=== PATIENT | female | born 1935 | race Caucasian/White ===

== ENCOUNTER 2018-11-27 15:41 | Inpatient (IN) | payer MEDICARE, BC ==
[~2018-11-27] VITALS: Ht 157.5 cm; Wt 45.0 kg
[~2018-11-27 15:41] MED LIST: DOCU-28 PO; LISI10TA4 PO; MAGN800O PO; MULT-38 PO; OXYQ113.2 VG; PRED2.5T4 PO; PREVCR VG; SPIIN INH; [UNRECOGNIZED DRUG - CODE] PO
[2018-11-27 16:46] LABS: BASOPHILS % (AUTO) 0.3 % (0-1); EOSINOPHILS # (AUTO) 0.1 X10'3 (0-0.9); EOSINOPHILS % (AUTO) 1.1 % (0-6); HEMATOCRIT 36.3 % (35.0-45.0); HEMOGLOBIN 12.4 g/dl (12.0-16.0); LYMPHOCYTES # (AUTO) 0.9 X10'3 (1.1-4.8); LYMPHOCYTES % (AUTO) 9.3 % (21-51); MEAN CORPUSCULAR HGB CONC 34.2 g/dL (33.0-36.5); MEAN CORPUSCULAR VOLUME 93.5 FL (78-98); MEAN PLATELET VOLUME 7.1 FL (7.4-10.4); MONOCYTES # (AUTO) 0.8 X10'3 (0-0.9); MONOCYTES % (AUTO) 8.7 % (2-12); NEUTROPHILS # (AUTO) 7.6 X10'3 (1.8-7.7); NEUTROPHILS % (AUTO) 80.6 % (42-75); PLATELET COUNT 310 X10'3 (140-440); RED BLOOD COUNT 3.89 X10'6 (4.20-5.60); RED CELL DISTRIBUTION WIDTH 15.4 % (11.5-14.5); WHITE BLOOD COUNT 9.5 X10'3 (4.5-11.0)
[2018-11-27 16:57] LABS: PARTIAL THROMBOPLASTIN TIME 29 SECONDS (22-32)
[2018-11-27 17:01] LABS: ALANINE AMINOTRANSFERASE 19 U/L (12-78); ALBUMIN 3.1 G/DL (3.4-5.0); ALKALINE PHOSPHATASE 73 IU/L (46-116); ANION GAP 9 (8-16); ASPARTATE AMINO TRANSFERASE 23 U/L (10-37); BILIRUBIN,TOTAL 0.5 MG/DL (0.1-1.0); BLOOD UREA NITROGEN 16 MG/DL (7-18); BUN/CREATININE RATIO 23.9 (6.6-38.0); CALCIUM 8.7 MG/DL (8.5-10.1); CHLORIDE 90 MMOL/L (99-107); CREATININE 0.67 MG/DL (0.40-0.90); GLUCOSE 90 MG/DL (70-104); POTASSIUM 4.5 MMOL/L (3.5-5.1); SODIUM 122 MMOL/L (135-145); TOTAL CARBON DIOXIDE 22.7 MMOL/L (24-32); TOTAL PROTEIN 6.2 G/DL (6.4-8.2); eGFR 84 ML/MIN
[2018-11-27] MEDS ORDERED: CHOL100046 PO (18:19)
[2018-11-27] MEDS ORDERED: DENO60DI SQ (18:19)
[2018-11-27] MEDS ORDERED: LACTC PO (18:19)
[2018-11-27] MEDS ORDERED: TAMO20TA4 PO (18:19)
[2018-11-27] MEDS ORDERED: OXYQ113.2 PV (18:19)
[2018-11-27] MEDS ORDERED: LISI-604 PO (18:19)
[2018-11-27] MEDS ORDERED: ASPI-611 PO (18:19)
[2018-11-27] MEDS ORDERED: LORA10TA7 PO (18:19)
[2018-11-27] MEDS ORDERED: METH2.5T PO (18:19)
[2018-11-27] MEDS ORDERED: SIME125C88 PO (18:19)
[2018-11-27] MEDS ORDERED: NAPR220T67 PO (18:19)
[2018-11-27] MEDS ORDERED: FERR325T32 PO (18:19)
[2018-11-27] MEDS ORDERED: FOLI1TAB16 PO (18:19)
[2018-11-27 18:45] LABS: CLARITY,URINE SLIGHTLY CLOUDY (Clear); COLOR,URINE YELLOW (Yellow); GLUCOSE, URINE NEGATIVE (Neg); KETONES,URINE NEGATIVE (Neg); LEUKOCYTE ESTERASE ,URINE SMALL (Neg); NITRITES, URINE NEGATIVE (Neg); OCCULT BLOOD,URINE NEGATIVE (Neg); PH,URINE 6.5 (4.8-8.0); PROTEIN,URINE NEGATIVE (Neg); UROBILINOGEN,URINE 0.2 E.U/dL (0.2-1.0)
[2018-11-27 18:51] LABS: UA COLLECTION TYPE CLN CATCH MIDSTREAM
[2018-11-27 19:03] LABS: WBC,URINE 0-4 /HPF (0-4)
[2018-11-27 19:04] LABS: AMORPHOUS URATES 1+; BACTERIA,URINE FEW /HPF (Neg); RBC,URINE NONE SEEN /HPF (0-2); SQUAMOUS EPITHELIAL CELL,UR MODERATE /LPF (FEW)
[2018-11-27] MEDS ORDERED: mag hydrox/Alum hydrox/simeth 30ml oral suspension PO PRN (20:05)
[2018-11-27] MEDS ORDERED: acetaminophen 325mg tablet PO PRN ×2 (20:05)
[2018-11-27] MEDS ORDERED: ondansetron/PF 4mg/2ml inj IV PRN (20:05)
[2018-11-27] MEDS ORDERED: magnesium hydroxide 30ml (MOM) UD suspension PO PRN (20:05)
[2018-11-27] MEDS ORDERED: HYDROcodone/acetaminophen 5mg/325mg tablet PO PRN (20:05)
[2018-11-27] MEDS ORDERED: SIMETHICONE 125 MG CAPSULE PO PRN (20:15)
[2018-11-27] MEDS ORDERED: naproxen sodium 220mg tablet PO PRN (20:15)
[2018-11-27] MEDS ORDERED: OXYQUINOLINE PV SCH (20:15)
[2018-11-27] MEDS ORDERED: [UNRECOGNIZED DRUG - OTHER] PV SCH (20:15)
[2018-11-27 22:00] VITALS: BP 138/75
--- NOTE | 2018-11-27 22:15 | NUR ---
Received report from ER. Patient was alert and oriented and accompanied by her daughter. patient was able to transfer to the commode and to her bed with minimal assistance.
[2018-11-27] MEDS: normal saline 1000ml 1,000 ML IV SCH (22:25)
[2018-11-27] MEDS ORDERED: BACDS (22:37)
[2018-11-27] MEDS ORDERED: DOXY-224 (22:37)
--- NOTE | 2018-11-27 23:30 | NUR ---
DR. Savage was called in regards to patients home antibiotic. he said to hold the doxycycline and continue the bactrim.
[2018-11-27] MEDS: ipratropium 0.5 MG/2.5ML nebule IH SCH (23:33)
[2018-11-27] MEDS: sulfamethoxazole/trimethoprim DS (800/160mg) tablet PO SCH (23:55)
[2018-11-28] MEDS: ipratropium 0.5 MG/2.5ML nebule IH SCH ×4 (03:57→20:46)
[2018-11-28 06:00] VITALS: BP 119/67
--- NOTE | 2018-11-28 06:00 | NUR ---
Patient in room ORTH[facility] 4021. I have received report from Kaushal Vernon and had the opportunity to ask questions and assume patient care.
[2018-11-28 06:29] LABS: BASOPHILS % (AUTO) 0.3 % (0-1); EOSINOPHILS # (AUTO) 0.1 X10'3 (0-0.9); EOSINOPHILS % (AUTO) 1.6 % (0-6); HEMOGLOBIN 11.5 g/dl (12.0-16.0); LYMPHOCYTES # (AUTO) 0.9 X10'3 (1.1-4.8); LYMPHOCYTES % (AUTO) 10.3 % (21-51); MEAN CORPUSCULAR HEMOGLOBIN 31.8 PG (27.0-31.0); MEAN CORPUSCULAR HGB CONC 33.9 g/dL (33.0-36.5); MEAN PLATELET VOLUME 7.1 FL (7.4-10.4); MONOCYTES # (AUTO) 0.8 X10'3 (0-0.9); MONOCYTES % (AUTO) 10.1 % (2-12); NEUTROPHILS # (AUTO) 6.4 X10'3 (1.8-7.7); NEUTROPHILS % (AUTO) 77.7 % (42-75); PLATELET COUNT 271 X10'3 (140-440); RED BLOOD COUNT 3.61 X10'6 (4.20-5.60); RED CELL DISTRIBUTION WIDTH 15.5 % (11.5-14.5); WHITE BLOOD COUNT 8.2 X10'3 (4.5-11.0)
[2018-11-28 06:46] LABS: ALBUMIN 2.6 G/DL (3.4-5.0); ANION GAP 9 (8-16); BLOOD UREA NITROGEN 17 MG/DL (7-18); BUN/CREATININE RATIO 28.3 (6.6-38.0); CHLORIDE 94 MMOL/L (99-107); GLUCOSE 76 MG/DL (70-104); SODIUM 125 MMOL/L (135-145); TOTAL CARBON DIOXIDE 22.3 MMOL/L (24-32); eGFR > 90 ML/MIN
[2018-11-28] MEDS ORDERED: non-formulary drug (Tiotropium Bromide (SPIRIVA inhaler) 1 CAP) INH SCH (08:00)
[2018-11-28] MEDS ORDERED: non-formulary drug (Multivitamin (Daily Multiple Vitamin) 1 TAB) PO SCH (08:00)
[2018-11-28] MEDS ORDERED: non-formulary drug (Lactobacillus Acidophilus (ACIDOPHILUS capsule) 1 CAP) PO SCH (08:00)
[2018-11-28] MEDS ORDERED: CALCIUM CITRATE PO SCH (08:00)
[2018-11-28] MEDS ORDERED: non-formulary drug (Aspirin (Aspir 81) 1 TAB) PO SCH (08:00)
[2018-11-28] MEDS ORDERED: VITAMIN D3 PO SCH (08:00)
[2018-11-28] MEDS ORDERED: TAMOXIFEN CITRATE PO SCH (08:00)
[2018-11-28] MEDS: loratadine 10mg tablet PO SCH (08:00)
[2018-11-28] MEDS: ferrous sulfate 325mg tablet PO SCH (09:38)
[2018-11-28] MEDS: docusate sod 100mg capsule PO SCH ×2 (09:38→20:25)
[2018-11-28] MEDS: aspirin 81mg tablet.DR PO SCH (09:38)
[2018-11-28] MEDS: lactobacillus rhamnosus 10,000 MMU CELLS/CAPSULE PO SCH (09:38)
[2018-11-28] MEDS: folic acid 1mg tablet PO SCH (09:39)
[2018-11-28] MEDS: tamoxifen 10mg tablet PO SCH (09:40)
[2018-11-28] MEDS: sulfamethoxazole/trimethoprim DS (800/160mg) tablet PO SCH ×2 (09:41→20:25)
[2018-11-28] MEDS: multivitamins, therapeutics tablet PO SCH (09:41)
[2018-11-28] MEDS: calcium carbonate/vitamin D3 tablet PO SCH (09:41)
[2018-11-28] MEDS: vitamin D (cholecalciferol) 1,000 unit tablet PO SCH (09:42)
[2018-11-28] MEDS: lisinopril 5mg tablet PO SCH (09:42)
[2018-11-28] MEDS: enoxaparin 40mg/0.4ml syringe SUBCUT SCH (09:43)
[2018-11-28 10:00] VITALS: BP 111/74
[2018-11-28] MEDS: normal saline 1000ml 1,000 ML IV SCH (16:05)
--- NOTE | 2018-11-28 16:37 | NUR ---
Malnutrition consult: Patient and daughter seen at bedside. Pt reports she has been on abx that has changed the taste of food and that she has a difficult time eating d/t ill fitting dentures however she is currently in the process of getting new dentures. Pt currently on regular diet with 1.5L fluid restriction and documented with 25% PO intake at breakfast and 0% at lunch. Per pt/family pt was unable to eat lunch d/t being busy for testing however was eating a late lunch during RD visit. Per discussion it seems like pt may have consumed more than 25% PO intake at breakfast. Daughter reports 5 lb wt loss in three weeks with UBW 104 lbs, current documented wt is 99 lbs however is pt stated. Pt with visible muscle wasting around the clavicles. Pt admit with confusion with generalized weakness and hyponatremia although with no edema or decrease in muscle strength per physical assessment. Pt currently lacks a minimum of two criteria for malnutrition. Per physical assessment pt with an open area on buttocks from excoriation and venous ulcer to BLE, wound care has been consulted. Pt provided with written and verbal protein education with RD contact information. Per daughter patient's usual PO intake is a small snack for breakfast, lunch around noon, then a light evening meal. Pt agreeable to chopped meat with gravy on the side TID d/t ill fitting dentures, Lithuanian yogurt BIDBD, and cottage cheese with QD with lunch, d/w dietary. Will continue to follow and monitor qualifying criteria for malnutrition. Addendum: 11/28/18 at [address] Amended: Links added.
--- NOTE | 2018-11-28 17:09 | NUR ---
PRESSURE ULCER EDUCATION: DEFINITION: A pressure ulcer is an area of skin that breaks down when you stay in one position too long. The constant pressure against the skin reduces the blood flow to that area and the affected tissue dies. CAUSES: "Being bedridden or in a wheelchair "Fragile skin "Having a chronic condition, such as diabetes or vascular disease "Inability to move certain parts of your body without assistance "Older age "Incontinence of urine or stool SYMPTOMS: "A reddened area that DOES NOT turn white when pressed on - this can be the beginning of a pressure ulcer "A blister, deep sore or a crater - these can be advanced pressure ulcers FIRST AID: "Relieve the pressure on this area "Keep the area clean and dry "Call your primary doctor if you see any of the above symptoms "DO NOT massage the area "DO NOT use a donut shaped or ring shaped pillow- these actually interfere with the blood flow and cause complications PREVENTION: "Check for pressure ulcers everyday "Change position at least every two hours to relieve pressure "Use items that help relieve pressure- pillows, sheepskin, foam padding, and powders. "Keep skin clean and dry "Eat healthy well balanced meals "Exercise daily IF YOU SEE ANY OF THESE SYMPTOMS WHILE IN THE HOSPITAL - TELL YOUR NURSE IMMEDIATELY. IF YOU SEE ANY OF THESE SYMPTOMS WHILE AT HOME OR HAVE ANY QUESTIONS OR CONCERNS ABOUT PRESSURE ULCERS - CALL YOUR PRIMARY DOCTOR IMMEDIATELY. Addendum: 11/28/18 at 1710 by Rajendra Barnes RN Amended: Links added.
[2018-11-28 18:00] VITALS: BP 127/75
--- NOTE | 2018-11-28 18:10 | NUR ---
Problems reprioritized. Patient report given, questions answered & plan of care reviewed with Kaushal Vernon
[2018-11-28 22:00] VITALS: BP 123/53
[2018-11-29] MEDS: ipratropium 0.5 MG/2.5ML nebule IH SCH ×4 (03:12→20:11)
[2018-11-29 06:00] VITALS: BP 145/70
--- NOTE | 2018-11-29 06:30 | NUR ---
Patient in room ORTH[facility] 4021. I have received report from Kaushal Vernon and had the opportunity to ask questions and assume patient care.
[2018-11-29 06:45] LABS: ALBUMIN 2.6 G/DL (3.4-5.0); ANION GAP 7 (8-16); BLOOD UREA NITROGEN 15 MG/DL (7-18); CALCIUM 8.8 MG/DL (8.5-10.1); CHLORIDE 99 MMOL/L (99-107); GLUCOSE 79 MG/DL (70-104); POTASSIUM 4.1 MMOL/L (3.5-5.1); SODIUM 130 MMOL/L (135-145); TOTAL CARBON DIOXIDE 23.6 MMOL/L (24-32); eGFR > 90 ML/MIN
[2018-11-29 06:50] LABS: BASOPHILS % (AUTO) 0.3 % (0-1); EOSINOPHILS # (AUTO) 0.1 X10'3 (0-0.9); EOSINOPHILS % (AUTO) 1.8 % (0-6); HEMATOCRIT 34.7 % (35.0-45.0); HEMOGLOBIN 12.1 g/dl (12.0-16.0); LYMPHOCYTES # (AUTO) 0.8 X10'3 (1.1-4.8); LYMPHOCYTES % (AUTO) 10.5 % (21-51); MEAN CORPUSCULAR HEMOGLOBIN 32.7 PG (27.0-31.0); MEAN CORPUSCULAR HGB CONC 34.7 g/dL (33.0-36.5); MEAN CORPUSCULAR VOLUME 94.3 FL (78-98); MONOCYTES # (AUTO) 0.8 X10'3 (0-0.9); MONOCYTES % (AUTO) 10.6 % (2-12); NEUTROPHILS # (AUTO) 5.7 X10'3 (1.8-7.7); NEUTROPHILS % (AUTO) 76.8 % (42-75); PLATELET COUNT 302 X10'3 (140-440); RED BLOOD COUNT 3.68 X10'6 (4.20-5.60); RED CELL DISTRIBUTION WIDTH 15.3 % (11.5-14.5); WHITE BLOOD COUNT 7.5 X10'3 (4.5-11.0)
[2018-11-29] MEDS: loratadine 10mg tablet PO SCH (08:00)
[2018-11-29 08:59] VITALS: BP 140/81
[2018-11-29] MEDS: lactobacillus rhamnosus 10,000 MMU CELLS/CAPSULE PO SCH (09:10)
[2018-11-29] MEDS: aspirin 81mg tablet.DR PO SCH (09:10)
[2018-11-29] MEDS: ferrous sulfate 325mg tablet PO SCH (09:10)
[2018-11-29] MEDS: docusate sod 100mg capsule PO SCH ×2 (09:10→20:36)
[2018-11-29] MEDS: calcium carbonate/vitamin D3 tablet PO SCH (09:11)
[2018-11-29] MEDS: tamoxifen 10mg tablet PO SCH (09:11)
[2018-11-29] MEDS: sulfamethoxazole/trimethoprim DS (800/160mg) tablet PO SCH ×2 (09:11→20:36)
[2018-11-29] MEDS: multivitamins, therapeutics tablet PO SCH (09:11)
[2018-11-29] MEDS: folic acid 1mg tablet PO SCH (09:11)
[2018-11-29] MEDS: lisinopril 5mg tablet PO SCH (09:12)
[2018-11-29] MEDS: vitamin D (cholecalciferol) 1,000 unit tablet PO SCH (09:12)
[2018-11-29] MEDS: enoxaparin 40mg/0.4ml syringe SUBCUT SCH (09:12)
[2018-11-29 10:00] VITALS: BP 121/76
[2018-11-29] MEDS: normal saline 1000ml 1,000 ML IV SCH ×2 (12:05→20:45)
--- NOTE | 2018-11-29 18:14 | NUR ---
Problems reprioritized. Patient report given, questions answered & plan of care reviewed with Kaushal Vrenon
[2018-11-30] MEDS: ipratropium 0.5 MG/2.5ML nebule IH SCH ×4 (03:13→21:17)
[2018-11-30 06:00] VITALS: BP 147/79
[2018-11-30 06:40] LABS: BASOPHILS % (AUTO) 0.4 % (0-1); EOSINOPHILS # (AUTO) 0.2 X10'3 (0-0.9); EOSINOPHILS % (AUTO) 1.9 % (0-6); HEMATOCRIT 34.7 % (35.0-45.0); HEMOGLOBIN 11.8 g/dl (12.0-16.0); LYMPHOCYTES # (AUTO) 0.6 X10'3 (1.1-4.8); LYMPHOCYTES % (AUTO) 7.9 % (21-51); MEAN CORPUSCULAR VOLUME 94.2 FL (78-98); MONOCYTES # (AUTO) 0.7 X10'3 (0-0.9); MONOCYTES % (AUTO) 8.6 % (2-12); NEUTROPHILS # (AUTO) 6.4 X10'3 (1.8-7.7); NEUTROPHILS % (AUTO) 81.2 % (42-75); PLATELET COUNT 304 X10'3 (140-440); RED BLOOD COUNT 3.69 X10'6 (4.20-5.60); RED CELL DISTRIBUTION WIDTH 15.3 % (11.5-14.5); WHITE BLOOD COUNT 7.9 X10'3 (4.5-11.0)
[2018-11-30 06:43] LABS: ALBUMIN 2.6 G/DL (3.4-5.0); ANION GAP 8 (8-16); BLOOD UREA NITROGEN 12 MG/DL (7-18); BUN/CREATININE RATIO 20.7 (6.6-38.0); CALCIUM 8.5 MG/DL (8.5-10.1); CHLORIDE 99 MMOL/L (99-107); CREATININE 0.58 MG/DL (0.40-0.90); GLUCOSE 83 MG/DL (70-104); SODIUM 133 MMOL/L (135-145); TOTAL CARBON DIOXIDE 25.7 MMOL/L (24-32); eGFR > 90 ML/MIN
[2018-11-30] MEDS: sulfamethoxazole/trimethoprim DS (800/160mg) tablet PO SCH ×2 (08:00→19:43)
[2018-11-30] MEDS: tamoxifen 10mg tablet PO SCH (08:00)
[2018-11-30 10:00] VITALS: BP 96/65
[2018-11-30] MEDS: lactobacillus rhamnosus 10,000 MMU CELLS/CAPSULE PO SCH (10:07)
[2018-11-30] MEDS: calcium carbonate/vitamin D3 tablet PO SCH (10:07)
[2018-11-30] MEDS: docusate sod 100mg capsule PO SCH ×2 (10:07→19:43)
[2018-11-30] MEDS: loratadine 10mg tablet PO SCH (10:07)
[2018-11-30] MEDS: folic acid 1mg tablet PO SCH (10:07)
[2018-11-30] MEDS: ferrous sulfate 325mg tablet PO SCH (10:07)
[2018-11-30] MEDS: aspirin 81mg tablet.DR PO SCH (10:07)
[2018-11-30] MEDS: enoxaparin 40mg/0.4ml syringe SUBCUT SCH (10:08)
[2018-11-30] MEDS: vitamin D (cholecalciferol) 1,000 unit tablet PO SCH (10:08)
[2018-11-30] MEDS: multivitamins, therapeutics tablet PO SCH (10:08)
[2018-11-30] MEDS: lisinopril 5mg tablet PO SCH (10:08)
[2018-11-30] MEDS ORDERED: bisacodyl 10mg suppository rectal RC PRN (13:15)
[2018-11-30] MEDS ORDERED: lactulose 20gm/30ml cup PO ONE (13:15)
[2018-11-30] MEDS ORDERED: mineral oil 133ml enema RC PRN (13:15)
[2018-11-30] MEDS ORDERED: mineral oil 133ml enema RC ONE (13:15)
[2018-11-30] MEDS: normal saline 1000ml 1,000 ML IV SCH (14:04)
[2018-11-30 14:44] LABS: CLARITY,URINE CLEAR (Clear); COLOR,URINE YELLOW (Yellow); GLUCOSE, URINE NEGATIVE (Neg); KETONES,URINE NEGATIVE (Neg); LEUKOCYTE ESTERASE ,URINE NEGATIVE (Neg); NITRITES, URINE NEGATIVE (Neg); OCCULT BLOOD,URINE NEGATIVE (Neg); PH,URINE 7.5 (4.8-8.0); PROTEIN,URINE NEGATIVE (Neg); SODIUM,URINE RANDOM 99 MEQ/L; UROBILINOGEN,URINE 0.2 E.U/dL (0.2-1.0)
--- NOTE | 2018-11-30 14:44 | NUR ---
Dr. Chávez ordered straight catheter to obtain a clean urin sample. pt tolerated it well. Addendum: 11/30/18 at 1445 by Carolina Dick - STUDENT JOSE MARIANU Amended: Links added.
[2018-11-30 14:46] LABS: UA COLLECTION TYPE NON-SPECIFIED
[2018-11-30 15:01] LABS: OSMOLALITY UA 354 MOSM/K (50-1400)
--- NOTE | 2018-11-30 17:31 | NUR ---
Correction to 12 hr I/O for the period 0600 to 1800 Total Intake: 490 PO Total Output: 400 urine 600 I & O Cath x1 urine output
[2018-11-30 18:00] VITALS: BP 148/69
--- NOTE | 2018-11-30 18:59 | NUR ---
Report rec'd from danilo Agee.
--- NOTE | 2018-11-30 19:17 | NUR ---
Page to dr Hastings r/t senior technical manager reported Pt HR in 130s, EKG performed and read.
--- NOTE | 2018-11-30 19:24 | NUR ---
New order for Cardizem CD 120mg PO x1 now.
[2018-11-30] MEDS ORDERED: diltiazem CD 120mg capsule (once-daily) PO ONE (19:25)
[2018-11-30 19:33] VITALS: BP 122/64
[2018-11-30 21:52] VITALS: BP 122/64
[2018-11-30] MEDS: polyethylene glycol 3350 17gm powd pack PO SCH (22:34)
--- NOTE | 2018-11-30 23:43 | NUR ---
Emesis x2 approximately 120mL. Pt is sitting upright with emesis bag, call light in reach.
--- NOTE | 2018-12-01 00:13 | NUR ---
page to dr Hastings r/t pt is having Emesis and abd pain after multiple bowel txs for no BM x 2 days. awaiting response.
[2018-12-01 00:14] VITALS: BP 122/65
--- NOTE | 2018-12-01 00:23 | NUR ---
Dr Hastings responded, new orders for Reglan 10mg IV q6 hrs for Nausea.
[2018-12-01] MEDS ORDERED: metoclopramide 5 mg/ml inj IV PRN (00:25)
--- NOTE | 2018-12-01 02:33 | NUR ---
pt up to BSC to try for BM, gave hot tea to try to stiimulate BM, small rope shaped soft dark brown BM, then back to bed. Pt had another bout of Emesis, dark brown this time, approx 150ml, and continues to have emesis x2. tinkling BS.
[2018-12-01] MEDS: ipratropium 0.5 MG/2.5ML nebule IH SCH ×4 (02:51→21:12)
[2018-12-01 06:00] VITALS: BP 120/86
--- NOTE | 2018-12-01 06:30 | NUR ---
Patient in room ORTHO 4021. I have received report from BEST Fernando and had the opportunity to ask questions and assume patient care.
--- NOTE | 2018-12-01 06:34 | NUR ---
Report given to danilo Agee.
[2018-12-01 06:36] LABS: ALBUMIN 2.6 G/DL (3.4-5.0); ANION GAP 9 (8-16); BLOOD UREA NITROGEN 13 MG/DL (7-18); BUN/CREATININE RATIO 23.6 (6.6-38.0); CALCIUM 9.4 MG/DL (8.5-10.1); CHLORIDE 100 MMOL/L (99-107); CREATININE 0.55 MG/DL (0.40-0.90); GLUCOSE 118 MG/DL (70-104); POTASSIUM 3.6 MMOL/L (3.5-5.1); SODIUM 137 MMOL/L (135-145); TOTAL CARBON DIOXIDE 28.3 MMOL/L (24-32); eGFR > 90 ML/MIN
[2018-12-01 06:37] LABS: BASOPHILS % (AUTO) 0.2 % (0-1); EOSINOPHILS % (AUTO) 0.1 % (0-6); HEMATOCRIT 34.3 % (35.0-45.0); HEMOGLOBIN 11.6 g/dl (12.0-16.0); LYMPHOCYTES # (AUTO) 0.5 X10'3 (1.1-4.8); LYMPHOCYTES % (AUTO) 4.7 % (21-51); MEAN CORPUSCULAR HEMOGLOBIN 31.9 PG (27.0-31.0); MEAN CORPUSCULAR HGB CONC 33.7 g/dL (33.0-36.5); MEAN CORPUSCULAR VOLUME 94.5 FL (78-98); MEAN PLATELET VOLUME 7.3 FL (7.4-10.4); MONOCYTES # (AUTO) 0.6 X10'3 (0-0.9); MONOCYTES % (AUTO) 5.9 % (2-12); NEUTROPHILS # (AUTO) 9.6 X10'3 (1.8-7.7); NEUTROPHILS % (AUTO) 89.1 % (42-75); PLATELET COUNT 308 X10'3 (140-440); RED BLOOD COUNT 3.63 X10'6 (4.20-5.60); RED CELL DISTRIBUTION WIDTH 15.6 % (11.5-14.5); WHITE BLOOD COUNT 10.8 X10'3 (4.5-11.0)
[2018-12-01] MEDS: normal saline 1000ml 1,000 ML IV SCH (07:28)
[2018-12-01] MEDS: lisinopril 5mg tablet PO SCH (08:00)
[2018-12-01] MEDS: ferrous sulfate 325mg tablet PO SCH (08:00)
[2018-12-01] MEDS ORDERED: [UNRECOGNIZED DRUG - OTHER] TOP SCH (08:00)
[2018-12-01] MEDS: tamoxifen 10mg tablet PO SCH (08:00)
[2018-12-01] MEDS: lactobacillus rhamnosus 10,000 MMU CELLS/CAPSULE PO SCH (08:00)
[2018-12-01] MEDS: folic acid 1mg tablet PO SCH (08:00)
[2018-12-01] MEDS: sulfamethoxazole/trimethoprim DS (800/160mg) tablet PO SCH ×2 (08:00→20:00)
[2018-12-01] MEDS: calcium carbonate/vitamin D3 tablet PO SCH (08:00)
[2018-12-01] MEDS: multivitamins, therapeutics tablet PO SCH (08:00)
[2018-12-01] MEDS: aspirin 81mg tablet.DR PO SCH (08:00)
[2018-12-01] MEDS: enoxaparin 40mg/0.4ml syringe SUBCUT SCH (08:00)
[2018-12-01] MEDS: vitamin D (cholecalciferol) 1,000 unit tablet PO SCH (08:00)
[2018-12-01] MEDS: loratadine 10mg tablet PO SCH (08:00)
[2018-12-01] MEDS: docusate sod 100mg capsule PO SCH ×2 (08:00→20:00)
[2018-12-01] MEDS: diatr meglu/diatrizoate 30ml oral sol.-(3 dose) bottle PO SCH ×4 (08:57→19:51)
--- NOTE | 2018-12-01 09:00 | NUR ---
Spoke with Dr. Chávez who ordered CT scan for later today. Received TC from [facility] (CT) and was informed to administer 10ml Gastrogaffin at 0900, 1900 & 2000. Pt also to receive 240 ml water after the Gastrogaffin is administered x3 today. Pt will have the CAT scan at 2000 tonight. Pt placed on NPO status and NG tube clamped at this time. Will continue to monitor pts n/v throughout the day.
[2018-12-01 10:00] VITALS: BP 123/51
[2018-12-01 18:30] VITALS: BP 139/63
[2018-12-01] MEDS ORDERED: iohexol 300mg/ml 100ml inj. ONE (19:29)
[2018-12-01] MEDS: polyethylene glycol 3350 17gm powd pack PO SCH (21:00)
[2018-12-01] MEDS ORDERED: diatr meglu/diatrizoate 30ml oral sol.-(3 dose) bottle PO SCH (21:00)
[2018-12-01 22:00] VITALS: BP 131/74
[2018-12-02] MEDS: ipratropium 0.5 MG/2.5ML nebule IH SCH ×5 (02:37→20:24)
[2018-12-02] MEDS: normal saline 1000ml 1,000 ML IV SCH ×2 (03:00→22:09)
--- NOTE | 2018-12-02 03:36 | NUR ---
Pt has been NPO since 1000 11/30/18, then gastrografin given with 240ml free water x3. Tubing was clogged for last admin although difficult to pass, was able to admin last dose. Low intermittent suction applied again at this time, and tubing flushed with 60ml free water.
[2018-12-02 05:30] LABS: BASOPHILS # (AUTO) 0.1 X10'3 (0-0.2); BASOPHILS % (AUTO) 0.6 % (0-1); EOSINOPHILS # (AUTO) 0.3 X10'3 (0-0.9); EOSINOPHILS % (AUTO) 2.6 % (0-6); HEMATOCRIT 31.4 % (35.0-45.0); HEMOGLOBIN 10.8 g/dl (12.0-16.0); LYMPHOCYTES # (AUTO) 0.7 X10'3 (1.1-4.8); MEAN CORPUSCULAR HEMOGLOBIN 32.3 PG (27.0-31.0); MEAN CORPUSCULAR HGB CONC 34.2 g/dL (33.0-36.5); MEAN CORPUSCULAR VOLUME 94.3 FL (78-98); MONOCYTES # (AUTO) 0.7 X10'3 (0-0.9); MONOCYTES % (AUTO) 7.4 % (2-12); NEUTROPHILS # (AUTO) 7.9 X10'3 (1.8-7.7); NEUTROPHILS % (AUTO) 82.4 % (42-75); PLATELET COUNT 278 X10'3 (140-440); RED BLOOD COUNT 3.33 X10'6 (4.20-5.60); RED CELL DISTRIBUTION WIDTH 15.8 % (11.5-14.5); WHITE BLOOD COUNT 9.6 X10'3 (4.5-11.0)
[2018-12-02 05:34] LABS: ALBUMIN 2.4 G/DL (3.4-5.0); ANION GAP 8 (8-16); BLOOD UREA NITROGEN 12 MG/DL (7-18); BUN/CREATININE RATIO 23.5 (6.6-38.0); CALCIUM 7.9 MG/DL (8.5-10.1); CHLORIDE 103 MMOL/L (99-107); CREATININE 0.51 MG/DL (0.40-0.90); GLUCOSE 73 MG/DL (70-104); POTASSIUM 3.6 MMOL/L (3.5-5.1); SODIUM 135 MMOL/L (135-145); TOTAL CARBON DIOXIDE 24.1 MMOL/L (24-32); eGFR > 90 ML/MIN
[2018-12-02 06:00] VITALS: BP 131/80
--- NOTE | 2018-12-02 06:03 | NUR ---
Report given to danilo Agee.
[2018-12-02] MEDS: lactobacillus rhamnosus 10,000 MMU CELLS/CAPSULE PO SCH (09:03)
[2018-12-02] MEDS: docusate sod 100mg capsule PO SCH ×2 (09:03→19:35)
[2018-12-02] MEDS: loratadine 10mg tablet PO SCH ×2 (09:03→09:08)
[2018-12-02] MEDS: ferrous sulfate 325mg tablet PO SCH (09:04)
[2018-12-02] MEDS: aspirin 81mg tablet.DR PO SCH (09:04)
[2018-12-02] MEDS: folic acid 1mg tablet PO SCH (09:04)
[2018-12-02] MEDS: calcium carbonate/vitamin D3 tablet PO SCH (09:04)
[2018-12-02] MEDS: vitamin D (cholecalciferol) 1,000 unit tablet PO SCH (09:05)
[2018-12-02] MEDS: multivitamins, therapeutics tablet PO SCH (09:05)
[2018-12-02] MEDS: lisinopril 5mg tablet PO SCH (09:05)
[2018-12-02] MEDS: sulfamethoxazole/trimethoprim DS (800/160mg) tablet PO SCH ×2 (09:05→19:35)
[2018-12-02] MEDS: enoxaparin 40mg/0.4ml syringe SUBCUT SCH (09:06)
[2018-12-02] MEDS: tamoxifen 10mg tablet PO SCH (09:07)
[2018-12-02 10:00] VITALS: BP 114/67
--- NOTE | 2018-12-02 12:36 | NUR ---
Initial: Pt previous PO improving to 50-75% avg meals up from 25% first 2 days on admit. Pt made NPO complaints of constipation w/ emesis and NG placed -700ml output 11/30 w/ no significant output since per MD note. NG has been d/c today and pt to resume PO diet. CT 12/01 shows large amount of stool throughout all of colon. Receiving routine bowel care and reglan w/ good BM today per MD note; only yesenia previously this admit. [email or web address] for approval of ensure enlive BID given full thickness sacral PU on 1500ml fluid-restricted diet w/ dietary at 0ml allowed. Will monitor for MD approval prior to sending w/ meals. Will monitor for additional protein/kcal needs pending PO hx. Rec: 1. continue regular/1500ml fluid-restricted diet per MD 2. ensure enlive BID per MD approval 3. MVI for wound healing 4. routine bowel care 5. weekly wts Addendum: 12/02/18 at [address] Amended: Links added. Addendum: 12/02/18 at [address] Initial: Pt previous PO improving to 50-75% avg meals up from 25% first 2 days on admit. Pt made NPO complaints of constipation w/ emesis and NG placed -700ml output 11/30 w/ no significant output since per MD note. NG has been d/c today and pt to resume PO diet. CT 12/01 shows large hiatal hernia and large amount of stool throughout all of colon. Receiving routine bowel care and reglan w/ good BM today per MD note; only yesenia previously this admit. [email or web address] for approval of ensure enlive BID given full thickness sacral PU on 1500ml fluid-restricted diet w/ dietary at 0ml allowed. Will monitor for MD approval prior to sending w/ meals. Will monitor for additional protein/kcal needs pending PO hx. Rec: 1. continue regular/1500ml fluid-restricted diet per MD 2. ensure enlive BID per MD approval 3. MVI for wound healing 4. routine bowel care 5. weekly wts
[2018-12-02 18:00] VITALS: BP 121/82
--- NOTE | 2018-12-02 19:00 | NUR ---
Notified Dr Savage that telemetry reported pt in A-fib 130's-140's. New order for Cardizem 30mg PO Q6h and reassess on 12/03.
[2018-12-02] MEDS: diltiazem 30mg tablet PO SCH (19:35)
[2018-12-02] MEDS: polyethylene glycol 3350 17gm powd pack PO SCH (21:38)
[2018-12-02 22:00] VITALS: BP 119/66
[2018-12-03] MEDS: diltiazem 30mg tablet PO SCH ×2 (02:15→08:37)
[2018-12-03] MEDS: ipratropium 0.5 MG/2.5ML nebule IH SCH (02:36)
--- NOTE | 2018-12-03 05:59 | NUR ---
Report given to danilo Rodriges.
[2018-12-03 06:00] VITALS: BP 126/45
--- NOTE | 2018-12-03 06:10 | NUR ---
Patient in room ORTH[facility] 4021. I have received report from Kassie/Joya and had the opportunity to ask questions and assume patient care.
[2018-12-03] MEDS ORDERED: BISA10SU11 RC (08:41)
[2018-12-03] MEDS: docusate sod 100mg capsule PO SCH (08:41)
[2018-12-03] MEDS ORDERED: MAGN400O6 PO (08:41)
[2018-12-03] MEDS: lactobacillus rhamnosus 10,000 MMU CELLS/CAPSULE PO SCH (08:42)
[2018-12-03] MEDS: aspirin 81mg tablet.DR PO SCH (08:43)
[2018-12-03] MEDS: ferrous sulfate 325mg tablet PO SCH (08:44)
[2018-12-03] MEDS: folic acid 1mg tablet PO SCH (08:45)
[2018-12-03] MEDS: calcium carbonate/vitamin D3 tablet PO SCH (08:46)
[2018-12-03] MEDS: sulfamethoxazole/trimethoprim DS (800/160mg) tablet PO SCH (08:47)
[2018-12-03] MEDS: multivitamins, therapeutics tablet PO SCH (08:48)
[2018-12-03] MEDS: vitamin D (cholecalciferol) 1,000 unit tablet PO SCH (08:50)
[2018-12-03] MEDS: lisinopril 5mg tablet PO SCH (08:51)
[2018-12-03] MEDS: tamoxifen 10mg tablet PO SCH (08:52)
[2018-12-03] MEDS: enoxaparin 40mg/0.4ml syringe SUBCUT SCH (08:53)
--- NOTE | 2018-12-03 10:07 | NUR ---
Reviewed discharge instructions with pt and family. Pt verbalized understanding. Pt is alert, oriented and does not have any c/o discomfort at this time. All of pt's belongings were returned to pt. Pt was wheeled downstairs in her own wheelchair by her daughter who will drive her back to her residence.
--- NOTE | 2018-12-03 11:04 | NUR ---
Student documentation: I have reviewed all interventions, assessments performed and documented by Samir Engle. Student Medication Administration: For this medication-pass time frame, all medication were reviewed, dispensed, administered and documented per hospital policy by Samir Engle.
== END 2018-12-03 10:07 | disposition home health service (06) | DRG 689 ==
LOC: ER 15:42 → ORTHO 4S 22:26 → CMPBEDREQ 12-03 03:56
PROVIDERS: ADMIT Hospitalist; ATTEND Internal Medicine
PROC: 0D9670Z Drainage of Stomach with Drainage Device, Via Natural or Artificial Opening (ICD-10-PCS; 2018-11-30)
PROC: BW251ZZ Computerized Tomography (CT Scan) of Chest, Abdomen and Pelvis using Low Osmolar Contrast (ICD-10-PCS; principal; 2018-12-01)
DX: N39.0 Urinary tract infection, site not specified (principal); G93.41 Metabolic encephalopathy; E44.0 Moderate protein-calorie malnutrition; E87.1 Hypo-osmolality and hyponatremia; Z68.1 Body mass index [BMI] 19.9 or less, adult; G31.9 Degenerative disease of nervous system, unspecified; I10 Essential (primary) hypertension; R13.10 Dysphagia, unspecified; I48.0 Paroxysmal atrial fibrillation; J43.2 Centrilobular emphysema; K44.9 Diaphragmatic hernia without obstruction or gangrene; Z96.642 Presence of left artificial hip joint; M19.90 Unspecified osteoarthritis, unspecified site; K59.00 Constipation, unspecified; M06.9 Rheumatoid arthritis, unspecified; Z66 Do not resuscitate; Z79.82 Long term (current) use of aspirin; Z79.899 Other long term (current) drug therapy; Z85.118 Personal history of other malignant neoplasm of bronchus and lung; Z85.3 Personal history of malignant neoplasm of breast; Z87.891 Personal history of nicotine dependence; Z92.3 Personal history of irradiation; Z88.8 Allergy status to other drugs, medicaments and biological substances; Z88.1 Allergy status to other antibiotic agents; Z91.013 Allergy to seafood; Z82.49 Family history of ischemic heart disease and other diseases of the circulatory system; Z86.73 Personal history of transient ischemic attack (TIA), and cerebral infarction without residual deficits
CPT/HCPCS: 36415; 70450; 70551; 71045; 71260; 74177; 80048; 80053; 81001; 81003; 82607; 83605; 83930; 83935; 84145; 84300; 84443; 85025; 85610; 85730; 87040; 87081; 87088; 92508; 92616; 93005; 93880; 94640; 94760; 97110; 97116; 97161; 97162; 97530; 99285; G0378; J1650; J2765; J7030; J8610; Q9963; Q9967

== ENCOUNTER 2019-04-06 14:00 | Inpatient (IN) | payer MEDICARE, BC ==
[~2019-04-06] VITALS: Ht 154.9 cm; Wt 43.2 kg
[~2019-04-06 14:00] MED LIST changes: +ASPI-611 PO; +BISA10SU11 RC; +CHOL100046 PO; +DENO60DI SQ; +FERR325T32 PO; +FOLI1TAB16 PO; +LACTC PO; +LISI-604 PO; -LISI10TA4 PO; +LORA10TA7 PO; +MAGN400O6 PO; -MAGN800O PO; +METH2.5T PO; +NAPR220T67 PO; +OXYQ113.2 PV; -OXYQ113.2 VG; -PRED2.5T4 PO; -PREVCR VG; +SIME125C88 PO; +TAMO20TA4 PO
[2019-04-06 14:32] LABS: BASOPHILS % (AUTO) 0.4 % (0-1); EOSINOPHILS % (AUTO) 0.3 % (0-6); HEMATOCRIT 43.2 % (35.0-45.0); HEMOGLOBIN 14.7 g/dl (12.0-16.0); LYMPHOCYTES # (AUTO) 0.3 X10'3 (1.1-4.8); MEAN CORPUSCULAR HEMOGLOBIN 32.8 PG (27.0-31.0); MEAN CORPUSCULAR HGB CONC 34.1 g/dL (33.0-36.5); MEAN CORPUSCULAR VOLUME 96.2 FL (78-98); MEAN PLATELET VOLUME 7.6 FL (7.4-10.4); MONOCYTES # (AUTO) 0.6 X10'3 (0-0.9); MONOCYTES % (AUTO) 5.1 % (2-12); NEUTROPHILS # (AUTO) 10.1 X10'3 (1.8-7.7); NEUTROPHILS % (AUTO) 91.2 % (42-75); PLATELET COUNT 243 X10'3 (140-440); RED BLOOD COUNT 4.49 X10'6 (4.20-5.60); RED CELL DISTRIBUTION WIDTH 15.5 % (11.5-14.5); WHITE BLOOD COUNT 11.1 X10'3 (4.5-11.0)
[2019-04-06 14:50] LABS: ALANINE AMINOTRANSFERASE 18 U/L (12-78); ALBUMIN 3.6 G/DL (3.4-5.0); ALKALINE PHOSPHATASE 57 IU/L (46-116); ANION GAP 9 (8-16); ASPARTATE AMINO TRANSFERASE 33 U/L (10-37); BILIRUBIN,TOTAL 0.9 MG/DL (0.1-1.0); BLOOD UREA NITROGEN 32 MG/DL (7-18); BUN/CREATININE RATIO 38.6 (6.6-38.0); CALCIUM 10.8 MG/DL (8.5-10.1); CHLORIDE 102 MMOL/L (99-107); CREATININE 0.83 MG/DL (0.40-0.90); GLUCOSE 132 MG/DL (70-104); LIPASE 127 U/L (73-393); POTASSIUM 5.1 MMOL/L (3.5-5.1); SODIUM 137 MMOL/L (135-145); TOTAL CARBON DIOXIDE 25.6 MMOL/L (24-32); TOTAL PROTEIN 7.1 G/DL (6.4-8.2); eGFR 65 ML/MIN
--- NOTE | 2019-04-06 17:31 | NUR ---
BIB DAUGHTER WITH C/O NAUSEA AND VOMITING SINCE 0500 TODAY. PATIENT HAS HX OF PARTIAL BOWEL OBSTRUCTION IN 2018. EMESIS IS DARK BROWN IN COLOR. STATES CONSTIPATION AND FIRM ABDOMEN.
--- NOTE | 2019-04-06 18:29 | NUR ---
2005 PT HAD A PARTIOAL RESECTION DONE IN [place] BY DR MANNING . CURRENT PLAN OF CARE UPDATED . ASKED PT FOR URINE SAMPLE . . PT AWAITING MD AT THIS TIME . NO QUESTIONS ASKED
[2019-04-06] MEDS ORDERED: normal saline 1000ml 1,000 ML IV ONE (18:36)
[2019-04-06] MEDS ORDERED: metoclopramide 5 mg/ml inj IV ONE (18:40)
[2019-04-06] MEDS ORDERED: normal saline 1000ML IV soln IVB ONE (18:40)
[2019-04-06] MEDS ORDERED: iohexol 300mg/ml 100ml inj. ONE (18:45)
--- NOTE | 2019-04-06 19:17 | NUR ---
PT UPDATED GIVEN REGLAN FOR NAUSEA EDUCATED ABOUT NPO STATUS . STILL AWAITING URINE SPECIMAN
[2019-04-06] MEDS ORDERED: morphine 2 MG/ML inj. syringe IV ONE (19:50)
--- NOTE | 2019-04-06 21:00 | NUR ---
BEST MCMANUS ATTEMPTED TO PLACE THE NG TO LOW INTERMITTEN SUCTION . HE STATED HE ATTEMPTED X2 WITH OUT PLACMENT . PT AT THIS TIME DECLINING PLACEMENT. WILL NOTIFIY
[2019-04-06] MEDS ORDERED: LORazepam 2 mg/ml vial IV ONE (21:25)
[2019-04-06] MEDS ORDERED: potassium CL 10mEq/100ml bag 100 ML IV PRN ×2 (21:45)
[2019-04-06] MEDS ORDERED: morphine 2 MG/ML inj. syringe IV PRN ×2 (21:45)
[2019-04-06] MEDS ORDERED: magnesium 2GM in 50ml NS 50 ML IV PRN (21:45)
[2019-04-06] MEDS ORDERED: magnesium 4gm in 100ml NS 100 ML IV PRN (21:45)
--- NOTE | 2019-04-06 22:00 | NUR ---
PT HAD NG PLACED TO LEFT NARES 14 FRISIAN BY BEST HENDERSON. PT TOLERATED WELL
[2019-04-06] MEDS: normal saline 1000ml 1,000 ML IV SCH (22:13)
--- NOTE | 2019-04-06 22:15 | NUR ---
DR PATELED CALLED ABOUT NG PLACEMENT AND THE NEED FOR CONFIRMATION FOR HERNIA HX. DR PATEL DECLINED X RAY NG DRAINING TO INTERMITTENED SUCTION , GASTRICS CONTENTS AT THIS TIME . X1 ORDER GIVEN TO BEST HENDERSON FOR RT TREATMENT MED REC NOT COMPLETE AT THIS TIME DR PATEL AWARE STATED NO NEED TO COMPLETE MED REC PRIOR TO PT BEING SENT TO FLOOR PT IS CURRENTLY NPO
[2019-04-06] MEDS ORDERED: ipratropium 0.5 MG/2.5ML nebule IH ONE (23:00)
[2019-04-06 23:36] VITALS: BP 129/68
[2019-04-06] MEDS: ipratropium 0.5 MG/2.5ML nebule IH SCH ×2 (23:50→23:55)
[2019-04-07] MEDS: enalaprilat dihydrate 2.5mg/2ml vial IV SCH ×4 (02:00→22:21)
[2019-04-07 05:27] LABS: BASOPHILS % (AUTO) 0.5 % (0-1); EOSINOPHILS # (AUTO) 0.1 X10'3 (0-0.9); EOSINOPHILS % (AUTO) 3.3 % (0-6); HEMOGLOBIN 12.9 g/dl (12.0-16.0); LYMPHOCYTES # (AUTO) 0.2 X10'3 (1.1-4.8); LYMPHOCYTES % (AUTO) 5.4 % (21-51); MEAN CORPUSCULAR HEMOGLOBIN 32.6 PG (27.0-31.0); MEAN CORPUSCULAR HGB CONC 33.9 g/dL (33.0-36.5); MEAN CORPUSCULAR VOLUME 96.1 FL (78-98); MEAN PLATELET VOLUME 8.2 FL (7.4-10.4); MONOCYTES # (AUTO) 0.5 X10'3 (0-0.9); MONOCYTES % (AUTO) 16.4 % (2-12); NEUTROPHILS # (AUTO) 2.3 X10'3 (1.8-7.7); NEUTROPHILS % (AUTO) 74.4 % (42-75); PLATELET COUNT 213 X10'3 (140-440); RED BLOOD COUNT 3.96 X10'6 (4.20-5.60); RED CELL DISTRIBUTION WIDTH 15.4 % (11.5-14.5); WHITE BLOOD COUNT 3.1 X10'3 (4.5-11.0)
[2019-04-07 05:40] LABS: ALANINE AMINOTRANSFERASE 18 U/L (12-78); ALBUMIN 2.9 G/DL (3.4-5.0); ALBUMIN/GLOBULIN RATIO 0.9 (1.1-1.5); ALKALINE PHOSPHATASE 45 IU/L (46-116); ANION GAP 10 (8-16); ASPARTATE AMINO TRANSFERASE 30 U/L (10-37); BILIRUBIN,TOTAL 0.7 MG/DL (0.1-1.0); BLOOD UREA NITROGEN 34 MG/DL (7-18); BUN/CREATININE RATIO 44.2 (6.6-38.0); CALCIUM 9.3 MG/DL (8.5-10.1); CHLORIDE 109 MMOL/L (99-107); CREATININE 0.77 MG/DL (0.40-0.90); GLUCOSE 110 MG/DL (70-104); MAGNESIUM 1.6 MG/DL (1.5-2.4); POTASSIUM 4.1 MMOL/L (3.5-5.1); SODIUM 145 MMOL/L (135-145); TOTAL CARBON DIOXIDE 26.4 MMOL/L (24-32); TOTAL PROTEIN 6.1 G/DL (6.4-8.2); eGFR 71 ML/MIN
[2019-04-07 06:42] LABS: PLATELET ESTIMATE NORMAL; TOTAL CELLS COUNTED 100
--- NOTE | 2019-04-07 06:50 | NUR ---
Patient in room [facility] 349. I have received report from Toni JEWELL and had the opportunity to ask questions and assume patient care.
[2019-04-07] MEDS: K and/or MAG REPLACEMENT MC SCH ×2 (07:50→20:00)
[2019-04-07 07:53] VITALS: BP 137/71
[2019-04-07] MEDS: ondansetron/PF 4mg/2ml inj IV PRN ×2 (08:04→15:07)
--- NOTE | 2019-04-07 11:11 | NUR ---
Pamella pad in place Addendum: 04/07/19 at 1112 by Carolina Martines RN Amended: Links added.
[2019-04-07 11:30] VITALS: BP 115/61
[2019-04-07] MEDS: normal saline 1000ml 1,000 ML IV SCH (11:39)
[2019-04-07] MEDS: diatr meglu/diatrizoate 30ml oral sol.-(3 dose) bottle PO SCH ×3 (11:40→18:02)
--- NOTE | 2019-04-07 12:00 | NUR ---
Placement checked for NG.
[2019-04-07] MEDS: proCHLORperazine 10 MG/2 ml inj IV PRN ×2 (12:50→18:09)
[2019-04-07] MEDS ORDERED: bisacodyl 10mg suppository rectal RC PRN (13:25)
[2019-04-07] MEDS ORDERED: SIMETHICONE 125 MG CAPSULE PO PRN (13:25)
[2019-04-07] MEDS ORDERED: magnesium hydroxide 30ml (MOM) UD suspension PO PRN (13:25)
[2019-04-07] MEDS ORDERED: [UNRECOGNIZED DRUG - OTHER] PV SCH (13:25)
[2019-04-07] MEDS ORDERED: OXYQUINOLINE PV SCH (13:25)
[2019-04-07] MEDS ORDERED: ipratropium 0.5 MG/2.5ML nebule IH PRN (14:00)
--- NOTE | 2019-04-07 14:08 | NUR ---
Pt with low BMI of 18.0 using pt stated wt of 43.18 kg. At last visit in November of last year pt weighed 45 kg and reported UBW of 47 kg. Pt denied wt loss during malnutrition risk screen with RN this visit. Unable to assess PO intake at this time as pt currently NPO with NG tube in place d/t findings of hiatal hernia. Pt documented with severe general muscle weakness however no edema or wounds. Pt currently lacks a minimum of two criteria for malnutrition. Will continue to follow. Addendum: 04/07/19 at [address] Amended: Links added.
[2019-04-07 15:18] VITALS: BP 139/80
[2019-04-07] MEDS ORDERED: albuterol 2.5 MG/3 ML nebule NEB PRN (17:25)
--- NOTE | 2019-04-07 18:13 | NUR ---
OK to give compazine early for CT travel per Dr. Chávez. . Patient of the floor to CT.
--- NOTE | 2019-04-07 18:24 | NUR ---
Problems reprioritized. Patient report given, questions answered & plan of care reviewed with Arabella JEWELL.
--- NOTE | 2019-04-07 18:30 | NUR ---
Patient in room [facility] 349. I have received report from ESTELLA JEWELL and had the opportunity to ask questions and assume patient care.
[2019-04-07 20:00] VITALS: BP 131/66
[2019-04-07] MEDS: docusate sod 100mg capsule PO SCH (20:00)
[2019-04-07] MEDS: lactobacillus rhamnosus 10,000 MMU CELLS/CAPSULE PO SCH (20:00)
[2019-04-08] VITALS: BP 111/70
--- NOTE | 2019-04-08 00:30 | NUR ---
JEREZ CATHETER INSERTED ASEPTICALLY FOR URINARY RETENTION PER BR. FRENCH'S ORDER.
[2019-04-08] MEDS: normal saline 1000ml 1,000 ML IV SCH ×3 (00:35→23:23)
[2019-04-08] MEDS: enalaprilat dihydrate 2.5mg/2ml vial IV SCH ×3 (02:00→14:00)
[2019-04-08 06:25] LABS: BASOPHILS % (AUTO) 0.4 % (0-1); EOSINOPHILS # (AUTO) 0.1 X10'3 (0-0.9); EOSINOPHILS % (AUTO) 1.3 % (0-6); HEMATOCRIT 36.8 % (35.0-45.0); HEMOGLOBIN 12.4 g/dl (12.0-16.0); LYMPHOCYTES # (AUTO) 0.6 X10'3 (1.1-4.8); LYMPHOCYTES % (AUTO) 9.2 % (21-51); MEAN CORPUSCULAR HEMOGLOBIN 33.2 PG (27.0-31.0); MEAN CORPUSCULAR HGB CONC 33.6 g/dL (33.0-36.5); MEAN CORPUSCULAR VOLUME 98.7 FL (78-98); MEAN PLATELET VOLUME 8.2 FL (7.4-10.4); MONOCYTES # (AUTO) 0.9 X10'3 (0-0.9); MONOCYTES % (AUTO) 13.7 % (2-12); NEUTROPHILS # (AUTO) 5.2 X10'3 (1.8-7.7); NEUTROPHILS % (AUTO) 75.4 % (42-75); PLATELET COUNT 176 X10'3 (140-440); RED BLOOD COUNT 3.73 X10'6 (4.20-5.60); RED CELL DISTRIBUTION WIDTH 15.6 % (11.5-14.5); WHITE BLOOD COUNT 6.9 X10'3 (4.5-11.0)
--- NOTE | 2019-04-08 06:30 | NUR ---
Patient in room [facility] 349. I have received report from Arabella JEWELL and had the opportunity to ask questions and assume patient care.
--- NOTE | 2019-04-08 06:30 | NUR ---
Problems reprioritized. Patient report given, questions answered & plan of care reviewed with KIYA RN.
[2019-04-08 07:01] LABS: ALANINE AMINOTRANSFERASE 14 U/L (12-78); ALBUMIN 2.3 G/DL (3.4-5.0); ALBUMIN/GLOBULIN RATIO 0.8 (1.1-1.5); ALKALINE PHOSPHATASE 44 IU/L (46-116); ANION GAP 12 (8-16); ASPARTATE AMINO TRANSFERASE 16 U/L (10-37); BILIRUBIN,TOTAL 0.3 MG/DL (0.1-1.0); BLOOD UREA NITROGEN 30 MG/DL (7-18); CALCIUM 8.1 MG/DL (8.5-10.1); CHLORIDE 113 MMOL/L (99-107); CREATININE 0.79 MG/DL (0.40-0.90); GLUCOSE 64 MG/DL (70-104); MAGNESIUM 1.6 MG/DL (1.5-2.4); POTASSIUM 3.9 MMOL/L (3.5-5.1); SODIUM 148 MMOL/L (135-145); TOTAL CARBON DIOXIDE 22.9 MMOL/L (24-32); TOTAL PROTEIN 5.3 G/DL (6.4-8.2); eGFR 69 ML/MIN
[2019-04-08 07:45] VITALS: BP 98/59
[2019-04-08] MEDS: ferrous sulfate 325mg tablet PO SCH (08:00)
[2019-04-08] MEDS: docusate sod 100mg capsule PO SCH ×2 (08:00→21:24)
[2019-04-08] MEDS: multivitamins, therapeutics tablet PO SCH (08:00)
[2019-04-08] MEDS: loratadine 10mg tablet PO SCH (08:00)
[2019-04-08] MEDS: vitamin D (cholecalciferol) 1,000 unit tablet PO SCH (08:00)
[2019-04-08] MEDS: folic acid 1mg tablet PO SCH (08:00)
[2019-04-08] MEDS: calcium carbonate/vitamin D3 tablet PO SCH (08:00)
[2019-04-08] MEDS: lisinopril 5mg tablet PO SCH (08:00)
[2019-04-08] MEDS: K and/or MAG REPLACEMENT MC SCH ×2 (08:00→20:00)
[2019-04-08] MEDS: lactobacillus rhamnosus 10,000 MMU CELLS/CAPSULE PO SCH (08:00)
[2019-04-08] MEDS: aspirin 81mg tablet.DR PO SCH (09:08)
[2019-04-08] MEDS: tamoxifen 10mg tablet PO SCH (09:09)
[2019-04-08 10:22] LABS: PLATELET ESTIMATE NORMAL; TOTAL CELLS COUNTED 100
[2019-04-08 12:33] VITALS: BP 107/60
--- NOTE | 2019-04-08 14:21 | NUR ---
PRESSURE ULCER EDUCATION: DEFINITION: A pressure ulcer is an area of skin that breaks down when you stay in one position too long. The constant pressure against the skin reduces the blood flow to that area and the affected tissue dies. CAUSES: "Being bedridden or in a wheelchair "Fragile skin "Having a chronic condition, such as diabetes or vascular disease "Inability to move certain parts of your body without assistance "Older age "Incontinence of urine or stool SYMPTOMS: "A reddened area that DOES NOT turn white when pressed on - this can be the beginning of a pressure ulcer "A blister, deep sore or a crater - these can be advanced pressure ulcers FIRST AID: "Relieve the pressure on this area "Keep the area clean and dry "Call your primary doctor if you see any of the above symptoms "DO NOT massage the area "DO NOT use a donut shaped or ring shaped pillow- these actually interfere with the blood flow and cause complications PREVENTION: "Check for pressure ulcers everyday "Change position at least every two hours to relieve pressure "Use items that help relieve pressure- pillows, sheepskin, foam padding, and powders. "Keep skin clean and dry "Eat healthy well balanced meals "Exercise daily IF YOU SEE ANY OF THESE SYMPTOMS WHILE IN THE HOSPITAL - TELL YOUR NURSE IMMEDIATELY. IF YOU SEE ANY OF THESE SYMPTOMS WHILE AT HOME OR HAVE ANY QUESTIONS OR CONCERNS ABOUT PRESSURE ULCERS - CALL YOUR PRIMARY DOCTOR IMMEDIATELY. Addendum: 04/08/19 at 1422 by Myra Sinclair RN Amended: Links added.
--- NOTE | 2019-04-08 18:28 | NUR ---
Problems reprioritized. Patient report given, questions answered & plan of care reviewed with LAWRENCE JEWELL.
--- NOTE | 2019-04-08 18:30 | NUR ---
Patient in room [facility] 349. I have received report from KIYA JEWELL and had the opportunity to ask questions and assume patient care.
[2019-04-08] MEDS ORDERED: enalaprilat dihydrate 2.5mg/2ml vial IV PRN (19:00)
[2019-04-08 20:00] VITALS: BP 130/65
[2019-04-09] VITALS: BP 129/67
[2019-04-09 05:37] LABS: BASOPHILS % (AUTO) 0.3 % (0-1); EOSINOPHILS # (AUTO) 0.1 X10'3 (0-0.9); EOSINOPHILS % (AUTO) 1.3 % (0-6); HEMATOCRIT 38.6 % (35.0-45.0); HEMOGLOBIN 12.7 g/dl (12.0-16.0); LYMPHOCYTES # (AUTO) 0.6 X10'3 (1.1-4.8); LYMPHOCYTES % (AUTO) 5.3 % (21-51); MEAN CORPUSCULAR HEMOGLOBIN 33.3 PG (27.0-31.0); MEAN CORPUSCULAR HGB CONC 32.8 g/dL (33.0-36.5); MEAN CORPUSCULAR VOLUME 101.4 FL (78-98); MONOCYTES # (AUTO) 1.1 X10'3 (0-0.9); MONOCYTES % (AUTO) 10.4 % (2-12); NEUTROPHILS # (AUTO) 8.6 X10'3 (1.8-7.7); NEUTROPHILS % (AUTO) 82.7 % (42-75); PLATELET COUNT 170 X10'3 (140-440); RED BLOOD COUNT 3.81 X10'6 (4.20-5.60); RED CELL DISTRIBUTION WIDTH 16.3 % (11.5-14.5); WHITE BLOOD COUNT 10.4 X10'3 (4.5-11.0)
[2019-04-09 06:01] LABS: ALANINE AMINOTRANSFERASE 12 U/L (12-78); ALBUMIN 2.4 G/DL (3.4-5.0); ALBUMIN/GLOBULIN RATIO 0.8 (1.1-1.5); ALKALINE PHOSPHATASE 53 IU/L (46-116); ANION GAP 10 (8-16); ASPARTATE AMINO TRANSFERASE 20 U/L (10-37); BILIRUBIN,TOTAL 0.3 MG/DL (0.1-1.0); BLOOD UREA NITROGEN 20 MG/DL (7-18); BUN/CREATININE RATIO 30.8 (6.6-38.0); CALCIUM 7.9 MG/DL (8.5-10.1); CHLORIDE 114 MMOL/L (99-107); CREATININE 0.65 MG/DL (0.40-0.90); GLUCOSE 66 MG/DL (70-104); MAGNESIUM 1.7 MG/DL (1.5-2.4); POTASSIUM 3.9 MMOL/L (3.5-5.1); SODIUM 148 MMOL/L (135-145); TOTAL CARBON DIOXIDE 24.2 MMOL/L (24-32); TOTAL PROTEIN 5.6 G/DL (6.4-8.2); eGFR 87 ML/MIN
--- NOTE | 2019-04-09 06:25 | NUR ---
Problems reprioritized. Patient report given, questions answered & plan of care reviewed with KEIRA JEWELL.
[2019-04-09 07:00] VITALS: BP 157/67
--- NOTE | 2019-04-09 07:02 | NUR ---
Patient in room [facility] 349. I have received report from LAWRENCE JEWELL and had the opportunity to ask questions and assume patient care.
[2019-04-09 07:03] LABS: TOTAL CELLS COUNTED 100
[2019-04-09 07:05] LABS: ANISOCYTOSIS 1+; PLATELET ESTIMATE NORMAL
[2019-04-09] MEDS: multivitamins, therapeutics tablet PO SCH (08:00)
[2019-04-09] MEDS: loratadine 10mg tablet PO SCH (08:00)
[2019-04-09] MEDS: vitamin D (cholecalciferol) 1,000 unit tablet PO SCH (08:00)
[2019-04-09] MEDS: ferrous sulfate 325mg tablet PO SCH (08:00)
[2019-04-09] MEDS: calcium carbonate/vitamin D3 tablet PO SCH (08:00)
[2019-04-09] MEDS: K and/or MAG REPLACEMENT MC SCH ×2 (08:00→20:00)
[2019-04-09] MEDS: lactobacillus rhamnosus 10,000 MMU CELLS/CAPSULE PO SCH (08:14)
[2019-04-09] MEDS: aspirin 81mg tablet.DR PO SCH (08:14)
[2019-04-09] MEDS: lisinopril 5mg tablet PO SCH (08:14)
[2019-04-09] MEDS: docusate sod 100mg capsule PO SCH ×2 (08:14→20:57)
[2019-04-09] MEDS: folic acid 1mg tablet PO SCH (08:14)
[2019-04-09] MEDS: tamoxifen 10mg tablet PO SCH (08:17)
[2019-04-09 11:00] VITALS: BP 144/67
[2019-04-09] MEDS: normal saline 1000ml 1,000 ML IV SCH (12:09)
[2019-04-09] MEDS ORDERED: simethicone 125mg capsule PO PRN (12:36)
[2019-04-09 18:00] VITALS: BP 134/64
--- NOTE | 2019-04-09 18:47 | NUR ---
All cares given patient seen by DR Hastings. Daughter present. No c/o pain. Report given to Medina Jessica RN
[2019-04-09 23:42] VITALS: BP 121/72
[2019-04-10] MEDS: normal saline 1000ml 1,000 ML IV SCH ×2 (01:20→13:17)
--- NOTE | 2019-04-10 03:25 | NUR ---
Patient converted into Afib with HR 101. VSJaskaran. notified. No new orders.
[2019-04-10 03:26] VITALS: BP 132/57
[2019-04-10 04:23] LABS: BASOPHILS % (AUTO) 0.1 % (0-1); EOSINOPHILS # (AUTO) 0.2 X10'3 (0-0.9); EOSINOPHILS % (AUTO) 2.5 % (0-6); HEMOGLOBIN 12.2 g/dl (12.0-16.0); LYMPHOCYTES # (AUTO) 0.5 X10'3 (1.1-4.8); LYMPHOCYTES % (AUTO) 4.7 % (21-51); MEAN CORPUSCULAR HEMOGLOBIN 32.8 PG (27.0-31.0); MEAN CORPUSCULAR HGB CONC 33.8 g/dL (33.0-36.5); MONOCYTES # (AUTO) 1.1 X10'3 (0-0.9); MONOCYTES % (AUTO) 11.1 % (2-12); NEUTROPHILS % (AUTO) 81.6 % (42-75); PLATELET COUNT 175 X10'3 (140-440); RED BLOOD COUNT 3.72 X10'6 (4.20-5.60); RED CELL DISTRIBUTION WIDTH 15.5 % (11.5-14.5); WHITE BLOOD COUNT 9.7 X10'3 (4.5-11.0)
--- NOTE | 2019-04-10 04:45 | NUR ---
Clamped FC for bladder retraining.
--- NOTE | 2019-04-10 05:43 | NUR ---
Entered room to photograph wound to left buttock. Patient became aggitated and demanded that we let her leave the hospital. Attempted to get out of bed. Reoriented patient to hospital and plan of care; reminded that she had a munoz catheter in place and is wearing oxygen and unable to leave. Patient continued to demand to leave. Called daughter on the phone to speak with patient. Daughter states abnormal for her to be confused. Daughter is coming to hospital now. Bed alarm set, patient has stopped trying to get out of bed, patient is within view of RN station. Will continue to monitor. Addendum: 04/10/19 at 0548 by Dina Andersen RN Amended: Links added.
[2019-04-10 06:03] LABS: ALANINE AMINOTRANSFERASE 14 U/L (12-78); ALBUMIN/GLOBULIN RATIO 0.7 (1.1-1.5); ALKALINE PHOSPHATASE 52 IU/L (46-116); ANION GAP 7 (8-16); ASPARTATE AMINO TRANSFERASE 17 U/L (10-37); BILIRUBIN,TOTAL 0.3 MG/DL (0.1-1.0); BLOOD UREA NITROGEN 9 MG/DL (7-18); BUN/CREATININE RATIO 18.8 (6.6-38.0); CALCIUM 7.2 MG/DL (8.5-10.1); CHLORIDE 112 MMOL/L (99-107); CREATININE 0.48 MG/DL (0.40-0.90); GLUCOSE 92 MG/DL (70-104); MAGNESIUM 1.5 MG/DL (1.5-2.4); POTASSIUM 3.1 MMOL/L (3.5-5.1); SODIUM 145 MMOL/L (135-145); TOTAL CARBON DIOXIDE 25.8 MMOL/L (24-32); TOTAL PROTEIN 4.8 G/DL (6.4-8.2); eGFR > 90 ML/MIN
[2019-04-10 06:34] LABS: ANISOCYTOSIS 1+; PLATELET ESTIMATE NORMAL; POLYCHROMASIA 1+; TOTAL CELLS COUNTED 100
--- NOTE | 2019-04-10 06:47 | NUR ---
Problems reprioritized. Patient report given, questions answered & plan of care reviewed with Aida JEWELL.
--- NOTE | 2019-04-10 06:58 | NUR ---
Patient in room [facility] 349. I have received report from Medina Jessica RN and had the opportunity to ask questions and assume patient care.
[2019-04-10 07:00] VITALS: BP 117/74
[2019-04-10] MEDS: calcium carbonate/vitamin D3 tablet PO SCH (08:00)
[2019-04-10] MEDS: loratadine 10mg tablet PO SCH (08:00)
[2019-04-10] MEDS: ferrous sulfate 325mg tablet PO SCH (08:00)
[2019-04-10] MEDS: K and/or MAG REPLACEMENT MC SCH ×2 (08:00→20:00)
[2019-04-10] MEDS: multivitamins, therapeutics tablet PO SCH (08:00)
--- NOTE | 2019-04-10 08:59 | NUR ---
O2 Sat at rest on room air:_88__% If below 89%: Recovery O2 Sat at rest on _2__LPM:___%:__91_% via___NC (mask/nasal cannula, etc..) No further documentation is necessary. If O2 Sat did not drop below 89% on room air,ambulate patient on room air. O2 Sat while ambulating on room air:___% Recovery O2 Sat while ambulating on ___LPM:___% No further documentation is necessary. If patient does not drop below 89% while ambulating, he/she does not qualify for home O2.
[2019-04-10] MEDS: docusate sod 100mg capsule PO SCH ×2 (09:35→20:00)
[2019-04-10] MEDS: lisinopril 5mg tablet PO SCH (09:35)
[2019-04-10] MEDS: aspirin 81mg tablet.DR PO SCH (09:35)
[2019-04-10] MEDS: lactobacillus rhamnosus 10,000 MMU CELLS/CAPSULE PO SCH (09:36)
[2019-04-10] MEDS: vitamin D (cholecalciferol) 1,000 unit tablet PO SCH (09:37)
[2019-04-10] MEDS: folic acid 1mg tablet PO SCH (09:38)
[2019-04-10] MEDS: ipratropium/albuterol 3ml nebule NEB PRN (10:10)
[2019-04-10 12:00] VITALS: BP 123/74
[2019-04-10] MEDS ORDERED: potassium Cl 20 mEq SR tablet PO STA (12:32)
[2019-04-10] MEDS: tamoxifen 10mg tablet PO SCH (13:06)
--- NOTE | 2019-04-10 14:04 | NUR ---
Initial: Pt admit with SBO which is resolving per MD notes. Pt with BM 04/09. Pt denies N/V per MD notes. Pt previously on clear then full liquid diet documented with 25-50% PO intake however diet has been advanced to regular and pt documented with 25% and 75% PO intake. Pt likely not meeting nutrient needs at this time. Unable to obtain food preferences at this time as pt currently documented as A/O x 2. D/w dietary to send Ensure pudding BIDLD to optimize PO intake. Will continue to follow closely and monitor need for additional nutrition intervention. Recommendations: 1) Continue heart healthy diet; consider liberalization to regular if poor PO intake persists 2) Ensure pudding BIDLD; monitor need for additional ONS 3) Encourage PO intake; obtain food preferences once pt alert and oriented 4) Routine bowel care 5) Wt per rx Addendum: 04/10/19 at [address] Amended: Links added.
--- NOTE | 2019-04-10 16:46 | NUR ---
patient had IDC removed at 1030hrs, encouraged to void x2 bladder scanned 210mls observed. will continue to encourage patient to void and monitor.
--- NOTE | 2019-04-10 17:01 | NUR ---
DR Hastings paged, order given to straight cath only if >600mls.
[2019-04-10 18:00] VITALS: BP 135/85
--- NOTE | 2019-04-10 18:43 | NUR ---
Problems reprioritized. Patient report given, questions answered & plan of care reviewed with Pineda JEWELL.
[2019-04-11] VITALS: BP 125/85
[2019-04-11] MEDS: normal saline 1000ml 1,000 ML IV SCH (01:44)
--- NOTE | 2019-04-11 06:05 | NUR ---
Patient in room [facility] 349. I have received report from BEST Finney and had the opportunity to ask questions and assume patient care.
[2019-04-11 06:06] LABS: MEAN PLATELET VOLUME 8.1 FL (7.4-10.4); RED CELL DISTRIBUTION WIDTH 15.5 % (11.5-14.5)
[2019-04-11 06:09] LABS: BASOPHILS % (AUTO) 0.3 % (0-1); EOSINOPHILS # (AUTO) 0.2 X10'3 (0-0.9); EOSINOPHILS % (AUTO) 1.8 % (0-6); HEMATOCRIT 37.5 % (35.0-45.0); HEMOGLOBIN 12.8 g/dl (12.0-16.0); LYMPHOCYTES # (AUTO) 0.6 X10'3 (1.1-4.8); MEAN CORPUSCULAR VOLUME 97.1 FL (78-98); NEUTROPHILS # (AUTO) 6.6 X10'3 (1.8-7.7); NEUTROPHILS % (AUTO) 78.9 % (42-75); PLATELET COUNT 183 X10'3 (140-440); RED BLOOD COUNT 3.86 X10'6 (4.20-5.60); WHITE BLOOD COUNT 8.4 X10'3 (4.5-11.0)
--- NOTE | 2019-04-11 06:26 | NUR ---
Problems reprioritized. Patient report given, questions answered & plan of care reviewed with Mary RN.
[2019-04-11 06:30] VITALS: BP 146/83
[2019-04-11 07:03] LABS: ALANINE AMINOTRANSFERASE 24 U/L (12-78); ALBUMIN/GLOBULIN RATIO 0.7 (1.1-1.5); ALKALINE PHOSPHATASE 61 IU/L (46-116); ANION GAP 7 (8-16); ASPARTATE AMINO TRANSFERASE 37 U/L (10-37); BILIRUBIN,TOTAL 0.3 MG/DL (0.1-1.0); BLOOD UREA NITROGEN 6 MG/DL (7-18); BUN/CREATININE RATIO 14.6 (6.6-38.0); CHLORIDE 111 MMOL/L (99-107); CREATININE 0.41 MG/DL (0.40-0.90); GLUCOSE 84 MG/DL (70-104); MAGNESIUM 1.3 MG/DL (1.5-2.4); POTASSIUM 3.2 MMOL/L (3.5-5.1); SODIUM 144 MMOL/L (135-145); TOTAL CARBON DIOXIDE 26.3 MMOL/L (24-32); TOTAL PROTEIN 4.8 G/DL (6.4-8.2); eGFR > 90 ML/MIN
[2019-04-11] MEDS: K and/or MAG REPLACEMENT MC SCH (07:12)
[2019-04-11] MEDS ORDERED: furosemide 20 MG/2 ML vial IV SCH (08:00)
[2019-04-11] MEDS: docusate sod 100mg capsule PO SCH (10:13)
[2019-04-11] MEDS: aspirin 81mg tablet.DR PO SCH (10:13)
[2019-04-11] MEDS: multivitamins, therapeutics tablet PO SCH (10:14)
[2019-04-11] MEDS: ferrous sulfate 325mg tablet PO SCH (10:14)
[2019-04-11] MEDS: vitamin D (cholecalciferol) 1,000 unit tablet PO SCH (10:15)
[2019-04-11] MEDS: loratadine 10mg tablet PO SCH (10:15)
[2019-04-11] MEDS: lactobacillus rhamnosus 10,000 MMU CELLS/CAPSULE PO SCH (10:15)
[2019-04-11] MEDS: lisinopril 5mg tablet PO SCH (10:15)
[2019-04-11] MEDS: folic acid 1mg tablet PO SCH (10:16)
[2019-04-11] MEDS: tamoxifen 10mg tablet PO SCH (10:16)
[2019-04-11] MEDS: calcium carbonate/vitamin D3 tablet PO SCH (10:17)
[2019-04-11 11:00] VITALS: BP 150/94
[2019-04-11] MEDS ORDERED: potassium Cl 20 mEq SR tablet PO STA (11:06)
[2019-04-11] MEDS ORDERED: magnesium oxide 400mg tablet PO ONE (11:10)
[2019-04-11 11:48] LABS: CLARITY,URINE SLIGHTLY CLOUDY (Clear); COLOR,URINE YELLOW (Yellow); GLUCOSE, URINE NEGATIVE (Neg); KETONES,URINE NEGATIVE (Neg); LEUKOCYTE ESTERASE ,URINE LARGE (Neg); NITRITES, URINE POSITIVE (Neg); OCCULT BLOOD,URINE LARGE (Neg); PROTEIN,URINE NEGATIVE (Neg); UROBILINOGEN,URINE 0.2 E.U/dL (0.2-1.0)
[2019-04-11 11:55] LABS: UA COLLECTION TYPE NON-SPECIFIED
[2019-04-11 11:56] LABS: BACTERIA,URINE 4+ /HPF (Neg); MUCUS STRANDS FEW /LPF (Neg); SQUAMOUS EPITHELIAL CELL,UR MODERATE /LPF (FEW)
[2019-04-11 11:57] LABS: STARCH,URINE MODERATE /HPF (NEGATIVE)
[2019-04-11] MEDS: ipratropium/albuterol 3ml nebule NEB PRN (12:11)
--- NOTE | 2019-04-11 13:49 | NUR ---
Mary, RN, states Dr. Hastings is aware of HR earlier of 180's as an isolated episode during pt's attempt to have BM on BSC. Will continue to monitor. Barbara SAENZ, stated pt has ride to [employer] at 1500. Per Mary, the daughter who is at bedside is concerned that ALLA might not be completely resolved due to small BM 04/10. Second call from [employer] to report HR in 160s. Discussed w/ Mary recommendation to notify MD for possible Abd Xray, or other imaging, and current HR status, to assess further before d/cg. New orders pending.
[2019-04-11] MEDS ORDERED: diltiazem CD 180mg cap (once-daily) PO ONE (14:00)
--- NOTE | 2019-04-11 14:39 | NUR ---
A few calls from telesales professional today re:HR in the 150s, 160s, & 1 x in the 180s. Everytime call was received pt was assessed & found to be active @ the time of the call. Upon having pt rest, called telesales professional & HR decreased down to one teens-130s. notified x2. Dr Hastings ordered 1x cardizem CD & for pt to be DC'd on cardizem CD QD. Added TVO for cardizem & PO K+ QD to pt DC paperwork that is going to [facility].
--- NOTE | 2019-04-11 15:20 | NUR ---
DC inst provided to pt & pt's daughter. Report called to . All belongings sent w/pt. [employer] transported pt to front lobby.
[2019-04-12] MEDS ORDERED: folic acid 1mg tablet PO SCH (08:00)
== END 2019-04-11 15:21 | DRG 388 ==
LOC: ER 14:01 → ED HOLD 21:44 → SUR 3N 22:50
PROVIDERS: ADMIT Internal Medicine; ATTEND Internal Medicine
PROC: BW211ZZ Computerized Tomography (CT Scan) of Abdomen and Pelvis using Low Osmolar Contrast (ICD-10-PCS; principal; 2019-04-06)
PROC: 0D9670Z Drainage of Stomach with Drainage Device, Via Natural or Artificial Opening (ICD-10-PCS; 2019-04-06)
DX: K56.609 Unspecified intestinal obstruction, unspecified as to partial versus complete obstruction (principal); E43 Unspecified severe protein-calorie malnutrition; J96.01 Acute respiratory failure with hypoxia; Z68.1 Body mass index [BMI] 19.9 or less, adult; N39.0 Urinary tract infection, site not specified; I50.813 Acute on chronic right heart failure; Z96.643 Presence of artificial hip joint, bilateral; E87.6 Hypokalemia; M19.90 Unspecified osteoarthritis, unspecified site; K80.20 Calculus of gallbladder without cholecystitis without obstruction; I71.4 Abdominal aortic aneurysm, without rupture; J43.2 Centrilobular emphysema; I11.0 Hypertensive heart disease with heart failure; I48.0 Paroxysmal atrial fibrillation; K44.9 Diaphragmatic hernia without obstruction or gangrene; Z79.82 Long term (current) use of aspirin; Z79.899 Other long term (current) drug therapy; Z85.3 Personal history of malignant neoplasm of breast; Z90.12 Acquired absence of left breast and nipple; Z90.49 Acquired absence of other specified parts of digestive tract; Z88.1 Allergy status to other antibiotic agents; Z91.013 Allergy to seafood; Z82.41 Family history of sudden cardiac death; Z82.49 Family history of ischemic heart disease and other diseases of the circulatory system; Z87.891 Personal history of nicotine dependence
CPT/HCPCS: 36415; 71046; 74176; 74177; 80053; 81001; 83690; 83735; 83880; 85025; 87077; 87081; 87088; 87186; 94640; 94760; 97116; 97161; 97530; G0378; J0780; J1940; J2060; J2270; J2405; J2765; J7030; J8610; Q9963; Q9967

== ENCOUNTER 2019-04-21 18:18 | Inpatient (IN) | payer MEDICARE, BC ==
[~2019-04-21] VITALS: Ht 157.5 cm; Wt 43.2 kg
[2019-04-21] MEDS ORDERED: pantoprazole 40 MG vial IV ONE (18:35)
[2019-04-21] MEDS ORDERED: ondansetron/PF 4mg/2ml inj IV ONE (18:35)
--- NOTE | 2019-04-21 18:59 | NUR ---
PT AT CT
--- NOTE | 2019-04-21 19:01 | NUR ---
PT BACK FROM CT INSTRUCTED PT THAT WE NEED A URINE SAMPLE
--- NOTE | 2019-04-21 19:10 | NUR ---
JACQUELINE PARKER TO [facility] STOOL IN WC1 HE REPORTED NEG FOR BLOOD BY HIM
[2019-04-21 19:13] LABS: BASOPHILS # (AUTO) 0.1 X10'3 (0-0.2); BASOPHILS % (AUTO) 0.4 % (0-1); EOSINOPHILS # (AUTO) 0.1 X10'3 (0-0.9); EOSINOPHILS % (AUTO) 0.8 % (0-6); HEMATOCRIT 35.6 % (35.0-45.0); HEMOGLOBIN 12.1 g/dl (12.0-16.0); LYMPHOCYTES # (AUTO) 0.7 X10'3 (1.1-4.8); LYMPHOCYTES % (AUTO) 4.7 % (21-51); MEAN CORPUSCULAR HEMOGLOBIN 32.6 PG (27.0-31.0); MEAN CORPUSCULAR VOLUME 95.8 FL (78-98); MONOCYTES # (AUTO) 0.9 X10'3 (0-0.9); MONOCYTES % (AUTO) 6.4 % (2-12); NEUTROPHILS # (AUTO) 12.9 X10'3 (1.8-7.7); NEUTROPHILS % (AUTO) 87.7 % (42-75); PLATELET COUNT 397 X10'3 (140-440); RED BLOOD COUNT 3.71 X10'6 (4.20-5.60); RED CELL DISTRIBUTION WIDTH 15.4 % (11.5-14.5); WHITE BLOOD COUNT 14.7 X10'3 (4.5-11.0)
[2019-04-21 19:24] LABS: ALANINE AMINOTRANSFERASE 48 U/L (12-78); ALBUMIN 2.7 G/DL (3.4-5.0); ALBUMIN/GLOBULIN RATIO 0.7 (1.1-1.5); ALKALINE PHOSPHATASE 86 IU/L (46-116); ANION GAP 2 (8-16); ASPARTATE AMINO TRANSFERASE 38 U/L (10-37); BILIRUBIN,TOTAL 0.5 MG/DL (0.1-1.0); BLOOD UREA NITROGEN 43 MG/DL (7-18); BUN/CREATININE RATIO 47.3 (6.6-38.0); CALCIUM 11.7 MG/DL (8.5-10.1); CHLORIDE 99 MMOL/L (99-107); CREATININE 0.91 MG/DL (0.40-0.90); GLUCOSE 117 MG/DL (70-104); LIPASE 248 U/L (73-393); POTASSIUM 4.9 MMOL/L (3.5-5.1); SODIUM 139 MMOL/L (135-145); TOTAL CARBON DIOXIDE 38.3 MMOL/L (24-32); TOTAL PROTEIN 6.4 G/DL (6.4-8.2); eGFR 59 ML/MIN
[2019-04-21 19:37] LABS: CLARITY,URINE CLOUDY (Clear); COLOR,URINE YELLOW (Yellow); GLUCOSE, URINE NEGATIVE (Neg); KETONES,URINE NEGATIVE (Neg); LEUKOCYTE ESTERASE ,URINE LARGE (Neg); NITRITES, URINE NEGATIVE (Neg); OCCULT BLOOD,URINE SMALL (Neg); PROTEIN,URINE NEGATIVE (Neg); UROBILINOGEN,URINE 0.2 E.U/dL (0.2-1.0)
[2019-04-21 19:48] LABS: OCCULT BLOOD STOOL NEGATIVE (Neg)
[2019-04-21 19:51] LABS: UA COLLECTION TYPE STRAIGHT CATH
[2019-04-21 19:53] LABS: BACTERIA,URINE 1+ /HPF (Neg); RBC,URINE 0-2 /HPF (0-2); WBC,URINE 50-100 /HPF (0-4)
[2019-04-21 19:54] LABS: SQUAMOUS EPITHELIAL CELL,UR FEW /LPF (FEW); WBC CLUMPS,URINE MODERATE /HPF (NEGATIVE)
--- NOTE | 2019-04-21 20:30 | NUR ---
rt here for abg
[2019-04-21 20:36] LABS: ABG BASE EXCESS 6.6 mmol/L (-2.0-3.0); ABG HCO3 31.9 mmol/L (22.0-26.0); ABG OXYGEN SATURATION 96.6 % (95-98); ABG PCO2 (T) 48.2 mmHg (35.0-45.0); ABG PH (T) 7.438 (7.350-7.450); ABG PO2 (T) 87.6 mmHg (83-108); ALLEN'S TEST POSITIVE; FCOHb 0.7 % (0.5-1.5); FMetHb 0.3 % (0.3-1.12); FO2Hb 95.6 % (94-100); TOTAL HEMOGLOBIN 12.7 G/dl (12.0-16.0)
--- NOTE | 2019-04-21 20:48 | NUR ---
KEITH AT BEDSIDE TALKING WITH PT AND PT'S DAUGHTER.
[2019-04-21] MEDS ORDERED: metoclopramide 5 mg/ml inj IV ONE (20:50)
[2019-04-21] MEDS ORDERED: diphenhydrAMINE 50 mg/ml inj IV ONE (20:50)
[2019-04-21] MEDS ORDERED: morphine 2 MG/ML inj. syringe IV ONE (20:50)
[2019-04-21] MEDS ORDERED: CefTRIAXone/D5W-Rocephin 1gm 50 ML IV ONE (21:15)
--- NOTE | 2019-04-21 22:57 | NUR ---
NG attempted twice without success. Per MD, we can hold off on NG for now.
[2019-04-21] MEDS ORDERED: ONDA4TAB6 PO (23:07)
[2019-04-21] MEDS ORDERED: FURO-150 PO (23:07)
[2019-04-21] MEDS ORDERED: DILT180T PO (23:07)
[2019-04-21] MEDS ORDERED: POLY119P2 PO (23:10)
--- NOTE | 2019-04-21 23:20 | NUR ---
pt noted to have loose stool in brief. pt cleaned up and pt had another small bm. pt's brief changed, and pt repositioned. notified
[2019-04-21] MEDS ORDERED: CALC-729 PO (23:32)
[2019-04-21] MEDS ORDERED: POTA10TA PO (23:32)
[2019-04-21] MEDS ORDERED: IPRA3AMP9 IH (23:32)
[2019-04-21] MEDS ORDERED: NA P133E4 RC (23:32)
[2019-04-21] MEDS ORDERED: LORA10TA61 PO (23:32)
[2019-04-21] MEDS ORDERED: LIDO30GE4 TP (23:32)
[2019-04-22] VITALS (11 sets, daily range): BP systolic 86–126; BP diastolic 41–85
[2019-04-22] MEDS ORDERED: magnesium 2GM in 50ml NS 50 ML IV PRN (03:20)
[2019-04-22] MEDS ORDERED: ondansetron/PF 4mg/2ml inj IV PRN ×2 (03:20→14:00)
[2019-04-22] MEDS ORDERED: potassium CL 10mEq/100ml bag 100 ML IV PRN ×2 (03:20)
[2019-04-22] MEDS ORDERED: potassium Cl 20 mEq SR tablet PO PRN ×2 (03:20)
[2019-04-22] MEDS ORDERED: magnesium 4gm in 100ml NS 100 ML IV PRN (03:20)
[2019-04-22] MEDS ORDERED: magnesium Cl slow-release 64mg tablet PO PRN (03:20)
[2019-04-22] MEDS: normal saline 1000ml 1,000 ML IV SCH ×3 (04:13→18:42)
--- NOTE | 2019-04-22 06:08 | NUR ---
Problems reprioritized. Patient report given, questions answered & plan of care reviewed with BEST Parra. Addendum: 04/22/19 at 0608 by Krystal Garcia RN Amended: Links added.
--- NOTE | 2019-04-22 06:25 | NUR ---
Patient in room [facility]AK[facility] 359. I have received report from emmanuel JEWELL and had the opportunity to ask questions and assume patient care.
[2019-04-22] MEDS: pantoprazole 40 MG vial IV SCH ×2 (07:27→19:54)
[2019-04-22] MEDS ORDERED: levoFLOXACIN-Levaquin 500mg/D5 100 ML IV SCH (08:00)
[2019-04-22] MEDS: K and/or MAG REPLACEMENT MC SCH ×2 (08:00→19:44)
--- NOTE | 2019-04-22 11:35 | NUR ---
Malnutrition consult: Pt transferred to [facility] from [facility], reports 14-23 lb wt loss with decreased appetite per malnutrition risk screen with RN. Per RD note at last visit 04/07/19 "Pt with low BMI of 18.0 using pt stated wt of 43.18 kg. At last visit in November of last year pt weighed 45 kg and reported UBW of 47 kg. Pt denied wt loss during malnutrition risk screen with RN this visit." Patient's current stated wt is 43.18 kg which is consistent with wt hx. Unable to assess PO intake at this time as pt currently NPO admit with coffee-ground emesis. Pt with no significant decrease in muscle strength or edema. Pt currently does not meet criteria for malnutrition. Pt with low Alex of 12, skin intact per physical assessment. Will continue to follow. Addendum: 04/22/19 at [address] Amended: Links added.
[2019-04-22] MEDS ORDERED: [UNRECOGNIZED DRUG - OTHER] PV SCH (11:45)
[2019-04-22] MEDS ORDERED: OXYQUINOLINE PV SCH (11:45)
[2019-04-22] MEDS ORDERED: ipratropium 0.5 MG/2.5ML nebule IH PRN (12:00)
[2019-04-22 12:30] LABS: HEMATOCRIT 30.6 % (35.0-45.0); HEMOGLOBIN 10.1 g/dl (12.0-16.0); MEAN CORPUSCULAR HEMOGLOBIN 31.9 PG (27.0-31.0); MEAN CORPUSCULAR HGB CONC 32.9 g/dL (33.0-36.5); MEAN PLATELET VOLUME 7.8 FL (7.4-10.4); PLATELET COUNT 302 X10'3 (140-440); RED BLOOD COUNT 3.16 X10'6 (4.20-5.60); RED CELL DISTRIBUTION WIDTH 15.4 % (11.5-14.5); WHITE BLOOD COUNT 15.5 X10'3 (4.5-11.0)
--- NOTE | 2019-04-22 12:30 | NUR ---
patient seen by Dr Tellez. Is for surgery today per Dr Jiang, Preop check list initiated
[2019-04-22] MEDS: ipratropium/albuterol 3ml nebule IH SCH ×4 (12:32→23:45)
[2019-04-22 12:42] LABS: PARTIAL THROMBOPLASTIN TIME 25 SECONDS (22-32)
[2019-04-22 13:11] LABS: ALANINE AMINOTRANSFERASE 44 U/L (12-78); ALBUMIN 2.2 G/DL (3.4-5.0); ALBUMIN/GLOBULIN RATIO 0.7 (1.1-1.5); ALKALINE PHOSPHATASE 72 IU/L (46-116); ANION GAP -1 (8-16); ASPARTATE AMINO TRANSFERASE 36 U/L (10-37); BILIRUBIN,TOTAL 0.5 MG/DL (0.1-1.0); BLOOD UREA NITROGEN 52 MG/DL (7-18); BUN/CREATININE RATIO 46.4 (6.6-38.0); CALCIUM 10.9 MG/DL (8.5-10.1); CHLORIDE 105 MMOL/L (99-107); CREATININE 1.12 MG/DL (0.40-0.90); GLUCOSE 88 MG/DL (70-104); POTASSIUM 5.3 MMOL/L (3.5-5.1); SODIUM 138 MMOL/L (135-145); TOTAL CARBON DIOXIDE 33.6 MMOL/L (24-32); TOTAL PROTEIN 5.5 G/DL (6.4-8.2); eGFR 46 ML/MIN
[2019-04-22] MEDS ORDERED: ringers solution, lacted 1,000 ML IV SCH (13:58)
[2019-04-22] MEDS ORDERED: morphine 4 MG/ML inj SYRINge IV PRN ×3 (14:00→16:45)
[2019-04-22] MEDS ORDERED: meperidine/PF 25mg/ml syringe IV PRN ×3 (14:00)
[2019-04-22] MEDS ORDERED: proCHLORperazine 10 MG/2 ml inj IV PRN (14:00)
[2019-04-22] MEDS ORDERED: fentaNYL /PF 50mcg/ml 5ml ampule ONE (14:05)
[2019-04-22] MEDS ORDERED: desflurane 240ml liquid inh. IH ONE (14:05)
[2019-04-22] MEDS ORDERED: dexamethasone sod phosphate 10mg/ml inj ONE (14:05)
[2019-04-22] MEDS ORDERED: ondansetron/PF 4mg/2ml inj ONE (14:05)
[2019-04-22] MEDS ORDERED: midazolam 2 mg/2 ml injection ONE (14:05)
[2019-04-22] MEDS ORDERED: acetaminophen 1000 MG/100ml vial IV ONE (14:05)
[2019-04-22] MEDS ORDERED: rocuronium 10mg/ml inj IV ONE (14:06)
[2019-04-22] MEDS ORDERED: ceFOXitin 2 GM ADDVANTGE BAG 50 ML IV ONE (14:29)
[2019-04-22] MEDS ORDERED: BUPIVAcaine/PF 2.5 mg/ml (0.25%) 30ml vial ONE (14:51)
[2019-04-22] MEDS ORDERED: LIDOcaine 2% (20mg/ml) 5ml vial ONE (14:58)
[2019-04-22] MEDS ORDERED: propofol inj 20 ML IV ONE (14:58)
[2019-04-22] MEDS ORDERED: glycopyrrolate 0.2mg/ml inj ONE (15:00)
--- NOTE | 2019-04-22 15:17 | NUR ---
Received from OR via SURGICAL BED , accompanied by Anesthesiologist ELOISE and report given by Anesthesiolgist. PATIENT WITH VSS. PEG TUBE ON RIGHT ABDOMEN. VSS. 10L MASK WITH 100% SATRUATIONS. SCDS DONNED. 18G PIV IN LEFT UE RUNNING LR AT `100. Addendum: 04/22/19 at 1522 by Luiz Galindo RN, RN Amended: Links added.
--- NOTE | 2019-04-22 16:17 | NUR ---
ALL CRITERIA FOR TRANSFER TO THE FLOOR HAS BEEN ACHIEVED. VSS. BED LOW, CALL LIGHT AND VS. SET IN PLACE. RN PRESENT TO ACCEPT CARE. PATIENT RESTING COMFORTABLY IN BED. BELONGINGS SENT WITH PATIENT. DRESSINGS CDI. Addendum: 04/22/19 at 1638 by Luiz Galindo RN RN Amended: Links added.
[2019-04-22] MEDS: morphine 2 MG/ML inj. syringe IV PRN (16:51)
--- NOTE | 2019-04-22 17:00 | NUR ---
Patient in room [facility]AK[facility] 359. I have received report from Luiz JEWELL and had the opportunity to ask questions and assume patient care.patient appears stable. medicated for pain with relief. family present. Peg tube in place lapsites CDI
--- NOTE | 2019-04-22 18:00 | NUR ---
Patient in room [facility]AK[facility] 359. I have received report from Aida JEWELL and had the opportunity to ask questions and assume patient care.
--- NOTE | 2019-04-22 18:23 | NUR ---
Problems reprioritized. Patient report given, questions answered & plan of care reviewed with fady JEWELL.
--- NOTE | 2019-04-22 18:30 | NUR ---
Patient in room [facility]AK[facility] 359. I have received report from Aida JEWELL and had the opportunity to ask questions and assume patient care.
[2019-04-23] VITALS: BP 80/40
[2019-04-23] MEDS: morphine 2 MG/ML inj. syringe IV PRN ×3 (00:35→11:07)
[2019-04-23] MEDS: normal saline 1000ml 1,000 ML IV SCH ×3 (01:48→21:08)
[2019-04-23] MEDS: ipratropium/albuterol 3ml nebule IH SCH ×5 (03:43→20:06)
[2019-04-23 06:01] LABS: BASOPHILS % (AUTO) 0.1 % (0-1); EOSINOPHILS % (AUTO) 0 % (0-6); HEMATOCRIT 28.9 % (35.0-45.0); HEMOGLOBIN 9.7 g/dl (12.0-16.0); LYMPHOCYTES # (AUTO) 0.3 X10'3 (1.1-4.8); LYMPHOCYTES % (AUTO) 2.5 % (21-51); MEAN CORPUSCULAR HEMOGLOBIN 33.1 PG (27.0-31.0); MEAN CORPUSCULAR HGB CONC 33.7 g/dL (33.0-36.5); MEAN CORPUSCULAR VOLUME 98.4 FL (78-98); MEAN PLATELET VOLUME 7.9 FL (7.4-10.4); MONOCYTES # (AUTO) 0.6 X10'3 (0-0.9); MONOCYTES % (AUTO) 4.8 % (2-12); NEUTROPHILS # (AUTO) 12.4 X10'3 (1.8-7.7); NEUTROPHILS % (AUTO) 92.6 % (42-75); PLATELET COUNT 231 X10'3 (140-440); RED BLOOD COUNT 2.93 X10'6 (4.20-5.60); RED CELL DISTRIBUTION WIDTH 15.7 % (11.5-14.5); WHITE BLOOD COUNT 13.4 X10'3 (4.5-11.0)
--- NOTE | 2019-04-23 06:10 | NUR ---
Problems reprioritized. Patient report given, questions answered & plan of care reviewed with Aida JEWELL.
--- NOTE | 2019-04-23 06:12 | NUR ---
Problems reprioritized. Patient report given, questions answered & plan of care reviewed with Aida JEWELL.
[2019-04-23 06:20] LABS: ANION GAP 8 (8-16); BLOOD UREA NITROGEN 31 MG/DL (7-18); BUN/CREATININE RATIO 36.5 (6.6-38.0); CALCIUM 9.3 MG/DL (8.5-10.1); CHLORIDE 111 MMOL/L (99-107); CREATININE 0.85 MG/DL (0.40-0.90); GLUCOSE 104 MG/DL (70-104); MAGNESIUM 1.6 MG/DL (1.5-2.4); POTASSIUM 4.8 MMOL/L (3.5-5.1); SODIUM 142 MMOL/L (135-145); TOTAL CARBON DIOXIDE 23.4 MMOL/L (24-32); eGFR 64 ML/MIN
--- NOTE | 2019-04-23 06:45 | NUR ---
Patient in room [facility]AK[facility] 359. I have received report from Whitney JEWELL and had the opportunity to ask questions and assume patient care.
--- NOTE | 2019-04-23 06:56 | NUR ---
Patient in room [facility]AK[facility] 359. I have received report from Whitney JEWELL and had the opportunity to ask questions and assume patient care.
[2019-04-23] MEDS: levoFLOXACIN-Levaquin 250mg/D5 50 ML IV SCH (07:31)
[2019-04-23] MEDS: pantoprazole 40 MG vial IV SCH ×2 (07:40→21:47)
[2019-04-23 07:53] VITALS: BP 89/57
[2019-04-23] MEDS: tamoxifen 10mg tablet PO SCH (08:00)
[2019-04-23] MEDS: K and/or MAG REPLACEMENT MC SCH ×2 (08:16→20:00)
--- NOTE | 2019-04-23 12:16 | NUR ---
Problems reprioritized. Patient report given, questions answered & plan of care reviewed with Estr[employer] student nurse.
--- NOTE | 2019-04-23 12:16 | NUR ---
Patient in room [facility]AK[facility] 359. I have received report from Lora and had the opportunity to ask questions and assume patient care.
[2019-04-23] MEDS ORDERED: non-formulary drug (Na Phos,M-B/Na Phos,Di-Ba* (Fleet's Enema*) 1 BOTTLE) RC SCH (12:50)
[2019-04-23] MEDS ORDERED: simethicone 80mg chew tab PO PRN (12:50)
[2019-04-23] MEDS: calcium carbonate/vitamin D3 tablet PO SCH (13:00)
[2019-04-23] MEDS: multivitamins, therapeutics tablet PO SCH (13:00)
[2019-04-23] MEDS: polyethylene glycol 3350 17gm powd pack PO SCH (13:00)
[2019-04-23] MEDS: potassium chloride 10mEq ER tablet PO SCH (13:00)
[2019-04-23] MEDS: carVEDilol 3.125mg tablet PO SCH ×2 (13:10→20:00)
[2019-04-23] MEDS: ondansetron 4mg rapidly disintigrating tab PO SCH ×2 (13:41→21:43)
[2019-04-23 13:45] VITALS: BP 82/45
--- NOTE | 2019-04-23 14:35 | NUR ---
patient seen this am by DR Jiang. BSS ordered, and if pass can have clear lqd. CL diet commenced patient passed swallow. patient appears to be in Afib. [id number], Dr Tellez paged orders given to give coreg if patients systolic>90. Unable to give at 1230hrs, will continue to monitor. Wound vac placed by wound [id number]. Patient placed on tele nos 7, tele chamber called by this RN to check on patients rhythm. Patient is in afib with [id number], will continue to monitor patient closely.
[2019-04-23 14:40] VITALS: BP 84/41
[2019-04-23 18:00] VITALS: BP 79/44
--- NOTE | 2019-04-23 18:33 | NUR ---
Problems reprioritized. Patient report given, questions answered & plan of care reviewed with Mei JEWELL.
[2019-04-23] MEDS: LIDOcaine 4% (40 mg/ml) topical solution 50ml TP SCH (20:00)
[2019-04-23] MEDS: docusate sod 100mg capsule PO SCH (21:42)
[2019-04-24] VITALS: BP_SYST 79; BP_SYST 88; BP_DIAS 44; BP_DIAS 49
[2019-04-24] MEDS: ipratropium/albuterol 3ml nebule IH SCH ×7 (00:22→23:39)
[2019-04-24] MEDS: morphine 2 MG/ML inj. syringe IV PRN ×2 (02:14→06:52)
[2019-04-24] MEDS: ondansetron 4mg rapidly disintigrating tab PO SCH ×4 (02:14→20:00)
[2019-04-24 06:02] LABS: BASOPHILS # (AUTO) 0.1 X10'3 (0-0.2); BASOPHILS % (AUTO) 0.7 % (0-1); EOSINOPHILS # (AUTO) 0.2 X10'3 (0-0.9); EOSINOPHILS % (AUTO) 1.6 % (0-6); HEMATOCRIT 27.8 % (35.0-45.0); HEMOGLOBIN 9.5 g/dl (12.0-16.0); LYMPHOCYTES # (AUTO) 0.7 X10'3 (1.1-4.8); LYMPHOCYTES % (AUTO) 7.1 % (21-51); MEAN CORPUSCULAR HEMOGLOBIN 33.4 PG (27.0-31.0); MEAN CORPUSCULAR HGB CONC 34.2 g/dL (33.0-36.5); MEAN CORPUSCULAR VOLUME 97.7 FL (78-98); MEAN PLATELET VOLUME 7.6 FL (7.4-10.4); MONOCYTES # (AUTO) 0.8 X10'3 (0-0.9); MONOCYTES % (AUTO) 8.7 % (2-12); NEUTROPHILS # (AUTO) 7.9 X10'3 (1.8-7.7); NEUTROPHILS % (AUTO) 81.9 % (42-75); PLATELET COUNT 280 X10'3 (140-440); RED BLOOD COUNT 2.85 X10'6 (4.20-5.60); RED CELL DISTRIBUTION WIDTH 15.5 % (11.5-14.5); WHITE BLOOD COUNT 9.7 X10'3 (4.5-11.0)
[2019-04-24 06:29] LABS: ALBUMIN 1.9 G/DL (3.4-5.0); ANION GAP 4 (8-16); BLOOD UREA NITROGEN 15 MG/DL (7-18); BUN/CREATININE RATIO 24.2 (6.6-38.0); CALCIUM 8.8 MG/DL (8.5-10.1); CHLORIDE 111 MMOL/L (99-107); CREATININE 0.62 MG/DL (0.40-0.90); GLUCOSE 81 MG/DL (70-104); MAGNESIUM 1.6 MG/DL (1.5-2.4); SODIUM 142 MMOL/L (135-145); TOTAL CARBON DIOXIDE 26.9 MMOL/L (24-32); eGFR > 90 ML/MIN
--- NOTE | 2019-04-24 06:33 | NUR ---
I have reviewed and agree with all interventions, assessments performed and documented by BEST Nevarez. Problems reprioritized. Patient report given, questions answered & plan of care reviewed with BEST Drew.
--- NOTE | 2019-04-24 06:35 | NUR ---
Problems reprioritized. Patient report given, questions answered & plan of care reviewed with Viki JEWELL.
[2019-04-24 07:00] VITALS: BP 108/61
[2019-04-24] MEDS: ferrous sulfate 325mg tablet PO SCH (08:00)
[2019-04-24] MEDS ORDERED: CALCIUM CITRATE PO SCH (08:00)
[2019-04-24] MEDS ORDERED: VITAMIN D3 PO SCH (08:00)
[2019-04-24] MEDS: carVEDilol 3.125mg tablet PO SCH ×2 (08:00→20:00)
[2019-04-24] MEDS: LIDOcaine 4% (40 mg/ml) topical solution 50ml TP SCH ×2 (08:00→20:00)
[2019-04-24] MEDS: K and/or MAG REPLACEMENT MC SCH ×2 (08:00→19:55)
[2019-04-24] MEDS: loratadine 10mg tablet PO SCH (08:00)
[2019-04-24] MEDS: multivitamins, therapeutics tablet PO SCH (08:00)
[2019-04-24] MEDS: levoFLOXACIN-Levaquin 250mg/D5 50 ML IV SCH (08:59)
[2019-04-24] MEDS: pantoprazole 40 MG vial IV SCH ×2 (09:02→19:59)
[2019-04-24] MEDS: calcium carbonate/vitamin D3 tablet PO SCH (09:06)
[2019-04-24] MEDS: potassium chloride 10mEq ER tablet PO SCH (09:07)
[2019-04-24] MEDS: vitamin D (cholecalciferol) 1,000 unit tablet PO SCH (09:07)
[2019-04-24] MEDS: folic acid 1mg tablet PO SCH (09:09)
[2019-04-24] MEDS: docusate sod 100mg capsule PO SCH ×2 (09:09→20:00)
[2019-04-24] MEDS: lactobacillus rhamnosus 10,000 MMU CELLS/CAPSULE PO SCH (09:10)
[2019-04-24] MEDS: polyethylene glycol 3350 17gm powd pack PO SCH (09:13)
[2019-04-24] MEDS: tamoxifen 10mg tablet PO SCH (09:27)
[2019-04-24] MEDS: normal saline 1000ml 1,000 ML IV SCH ×2 (11:07→21:30)
[2019-04-24 12:30] VITALS: BP 84/45
[2019-04-24 17:30] VITALS: BP 105/54
[2019-04-24] MEDS ORDERED: pantoprazole 40mg Tablet.DR PO SCH (17:30)
[2019-04-24 18:00] VITALS: BP 103/46
--- NOTE | 2019-04-24 18:15 | NUR ---
Received report from BEST Drew. Patient is awake and alert on 2L NC, in no apparent distress. Family at bedside. Call light and items of frequent use within reach. Will continue to monitor.
--- NOTE | 2019-04-24 18:31 | NUR ---
Problems reprioritized. Patient report given, questions answered & plan of care reviewed with Mei JEWELL. Holden cath removed at 1420, pt has not voided yet will bladder scan. Tele called pt has change from A-fib to SR.
--- NOTE | 2019-04-24 20:00 | NUR ---
Bladder scanned patient; showed 128 cc of urine retained. Will continue to monitor.
[2019-04-25] VITALS: BP 120/56
--- NOTE | 2019-04-25 01:56 | NUR ---
Patient had episode of incontinence; post-void bladder scan showed 102 cc of urine left in bladder. Will continue to monitor.
[2019-04-25] MEDS: ondansetron 4mg rapidly disintigrating tab PO SCH ×4 (02:00→22:31)
[2019-04-25] MEDS: morphine 2 MG/ML inj. syringe IV PRN ×3 (03:41→22:25)
[2019-04-25] MEDS: ipratropium/albuterol 3ml nebule IH SCH ×6 (04:00→23:37)
[2019-04-25 05:31] LABS: ALBUMIN 1.9 G/DL (3.4-5.0); ANION GAP 5 (8-16); BLOOD UREA NITROGEN 12 MG/DL (7-18); BUN/CREATININE RATIO 22.6 (6.6-38.0); CALCIUM 8.5 MG/DL (8.5-10.1); CHLORIDE 110 MMOL/L (99-107); CREATININE 0.53 MG/DL (0.40-0.90); GLUCOSE 74 MG/DL (70-104); MAGNESIUM 1.5 MG/DL (1.5-2.4); SODIUM 143 MMOL/L (135-145); TOTAL CARBON DIOXIDE 28.3 MMOL/L (24-32); eGFR > 90 ML/MIN
[2019-04-25 05:48] LABS: BASOPHILS % (AUTO) 0.5 % (0-1); EOSINOPHILS # (AUTO) 0.1 X10'3 (0-0.9); EOSINOPHILS % (AUTO) 1.5 % (0-6); HEMATOCRIT 28.9 % (35.0-45.0); HEMOGLOBIN 9.8 g/dl (12.0-16.0); LYMPHOCYTES # (AUTO) 0.4 X10'3 (1.1-4.8); LYMPHOCYTES % (AUTO) 5.3 % (21-51); MEAN CORPUSCULAR HGB CONC 33.9 g/dL (33.0-36.5); MEAN CORPUSCULAR VOLUME 97.5 FL (78-98); MONOCYTES # (AUTO) 0.7 X10'3 (0-0.9); MONOCYTES % (AUTO) 9.1 % (2-12); NEUTROPHILS # (AUTO) 6.8 X10'3 (1.8-7.7); NEUTROPHILS % (AUTO) 83.6 % (42-75); PLATELET COUNT 277 X10'3 (140-440); RED BLOOD COUNT 2.96 X10'6 (4.20-5.60); RED CELL DISTRIBUTION WIDTH 15.8 % (11.5-14.5); WHITE BLOOD COUNT 8.2 X10'3 (4.5-11.0)
--- NOTE | 2019-04-25 06:32 | NUR ---
Problems reprioritized. Patient report given, questions answered & plan of care reviewed with BEST Mensah.
[2019-04-25 07:02] VITALS: BP 124/56
[2019-04-25] MEDS: loratadine 10mg tablet PO SCH (08:00)
[2019-04-25] MEDS: potassium chloride 10mEq ER tablet PO SCH (08:00)
[2019-04-25] MEDS: LIDOcaine 4% (40 mg/ml) topical solution 50ml TP SCH ×2 (08:00→20:00)
[2019-04-25] MEDS: vitamin D (cholecalciferol) 1,000 unit tablet PO SCH (08:00)
[2019-04-25] MEDS: calcium carbonate/vitamin D3 tablet PO SCH (08:00)
[2019-04-25] MEDS: K and/or MAG REPLACEMENT MC SCH ×2 (08:00→19:14)
[2019-04-25] MEDS: folic acid 1mg tablet PO SCH (08:00)
[2019-04-25] MEDS: ferrous sulfate 325mg tablet PO SCH (08:00)
[2019-04-25] MEDS: multivitamins, therapeutics tablet PO SCH (08:00)
[2019-04-25] MEDS: pantoprazole 40 MG vial IV SCH ×2 (08:32→22:30)
[2019-04-25] MEDS: levoFLOXACIN-Levaquin 250mg/D5 50 ML IV SCH (08:32)
[2019-04-25] MEDS: lactobacillus rhamnosus 10,000 MMU CELLS/CAPSULE PO SCH (08:45)
[2019-04-25] MEDS: docusate sod 100mg capsule PO SCH ×2 (08:46→22:31)
[2019-04-25] MEDS: carVEDilol 3.125mg tablet PO SCH ×2 (08:49→22:31)
[2019-04-25] MEDS: polyethylene glycol 3350 17gm powd pack PO SCH (08:49)
[2019-04-25] MEDS: tamoxifen 10mg tablet PO SCH (08:50)
[2019-04-25] MEDS: normal saline 1000ml 1,000 ML IV SCH ×2 (10:27→22:39)
[2019-04-25 11:29] VITALS: BP 95/61
[2019-04-25 18:15] VITALS: BP 111/63
--- NOTE | 2019-04-25 18:29 | NUR ---
Problems reprioritized. Patient report given, questions answered & plan of care reviewed with BEST Ashley.
--- NOTE | 2019-04-25 18:37 | NUR ---
Patient in room [facility]. I have received report from BEST Mensah and had the opportunity to ask questions and assume patient care.
[2019-04-26] VITALS: BP 110/69
[2019-04-26] MEDS: ondansetron 4mg rapidly disintigrating tab PO SCH ×4 (03:00→20:45)
[2019-04-26] MEDS: ipratropium/albuterol 3ml nebule IH SCH ×6 (04:00→23:19)
[2019-04-26 06:13] LABS: BASOPHILS % (AUTO) 0.4 % (0-1); EOSINOPHILS # (AUTO) 0.2 X10'3 (0-0.9); EOSINOPHILS % (AUTO) 2.5 % (0-6); HEMATOCRIT 28.7 % (35.0-45.0); HEMOGLOBIN 9.9 g/dl (12.0-16.0); LYMPHOCYTES # (AUTO) 0.5 X10'3 (1.1-4.8); LYMPHOCYTES % (AUTO) 7.2 % (21-51); MEAN CORPUSCULAR HEMOGLOBIN 33.6 PG (27.0-31.0); MEAN CORPUSCULAR HGB CONC 34.6 g/dL (33.0-36.5); MEAN CORPUSCULAR VOLUME 97.1 FL (78-98); MEAN PLATELET VOLUME 8.1 FL (7.4-10.4); MONOCYTES # (AUTO) 0.4 X10'3 (0-0.9); MONOCYTES % (AUTO) 5.4 % (2-12); NEUTROPHILS # (AUTO) 6.1 X10'3 (1.8-7.7); NEUTROPHILS % (AUTO) 84.5 % (42-75); PLATELET COUNT 248 X10'3 (140-440); RED BLOOD COUNT 2.95 X10'6 (4.20-5.60); RED CELL DISTRIBUTION WIDTH 15.4 % (11.5-14.5); WHITE BLOOD COUNT 7.3 X10'3 (4.5-11.0)
--- NOTE | 2019-04-26 06:20 | NUR ---
Problems reprioritized. Patient report given, questions answered & plan of care reviewed with BEST Mensah.
[2019-04-26 06:29] LABS: ALBUMIN 1.8 G/DL (3.4-5.0); ANION GAP 6 (8-16); BLOOD UREA NITROGEN 10 MG/DL (7-18); CALCIUM 7.8 MG/DL (8.5-10.1); CHLORIDE 111 MMOL/L (99-107); GLUCOSE 77 MG/DL (70-104); MAGNESIUM 1.5 MG/DL (1.5-2.4); POTASSIUM 3.9 MMOL/L (3.5-5.1); SODIUM 143 MMOL/L (135-145); TOTAL CARBON DIOXIDE 26.3 MMOL/L (24-32); eGFR > 90 ML/MIN
[2019-04-26 07:00] VITALS: BP 108/70
[2019-04-26] MEDS: pantoprazole 40 MG vial IV SCH ×2 (07:40→20:31)
[2019-04-26] MEDS: levoFLOXACIN-Levaquin 250mg/D5 50 ML IV SCH (07:40)
[2019-04-26] MEDS: loratadine 10mg tablet PO SCH (07:41)
[2019-04-26] MEDS: tamoxifen 10mg tablet PO SCH (07:41)
[2019-04-26] MEDS: ferrous sulfate 325mg tablet PO SCH (07:41)
[2019-04-26] MEDS: multivitamins, therapeutics tablet PO SCH (07:41)
[2019-04-26] MEDS: calcium carbonate/vitamin D3 tablet PO SCH (07:42)
[2019-04-26] MEDS: folic acid 1mg tablet PO SCH (07:42)
[2019-04-26] MEDS: lactobacillus rhamnosus 10,000 MMU CELLS/CAPSULE PO SCH (07:42)
[2019-04-26] MEDS: vitamin D (cholecalciferol) 1,000 unit tablet PO SCH (07:42)
[2019-04-26] MEDS: carVEDilol 3.125mg tablet PO SCH ×2 (07:42→20:30)
[2019-04-26] MEDS: potassium chloride 10mEq ER tablet PO SCH (07:42)
[2019-04-26] MEDS: docusate sod 100mg capsule PO SCH ×2 (07:42→20:30)
[2019-04-26] MEDS: K and/or MAG REPLACEMENT MC SCH ×2 (07:43→20:00)
[2019-04-26] MEDS: LIDOcaine 4% (40 mg/ml) topical solution 50ml TP SCH ×2 (07:43→20:00)
[2019-04-26] MEDS: polyethylene glycol 3350 17gm powd pack PO SCH ×2 (08:00→20:32)
[2019-04-26] MEDS ORDERED: proCHLORperazine 10 MG/2 ml inj IV PRN (09:55)
[2019-04-26 12:00] VITALS: BP 90/38
[2019-04-26] MEDS: normal saline 1000ml 1,000 ML IV SCH (12:01)
[2019-04-26] MEDS: magnesium hydroxide 30ml (MOM) UD suspension PO SCH (12:01)
[2019-04-26] MEDS: enoxaparin 30mg/0.3ml syringe SUBCUT SCH (12:02)
[2019-04-26] MEDS: methylnaltrexone br 12mg/0.6ml inj***SubQ only SQ SCH (12:02)
[2019-04-26] MEDS: morphine 2 MG/ML inj. syringe IV PRN ×2 (12:25→18:54)
--- NOTE | 2019-04-26 18:15 | NUR ---
Patient in room [facility]. I have received report from Makenna JEWELL and had the opportunity to ask questions and assume patient care.
--- NOTE | 2019-04-26 18:46 | NUR ---
Problems reprioritized. Patient report given, questions answered & plan of care reviewed with BEST Olson.
[2019-04-26 20:00] VITALS: BP 125/74
[2019-04-27] VITALS: BP 138/63
[2019-04-27] MEDS: normal saline 1000ml 1,000 ML IV SCH ×3 (00:30→19:25)
[2019-04-27] MEDS: ondansetron 4mg rapidly disintigrating tab PO SCH ×4 (02:21→20:51)
[2019-04-27] MEDS: morphine 2 MG/ML inj. syringe IV PRN ×2 (02:43→18:48)
[2019-04-27] MEDS: ipratropium/albuterol 3ml nebule IH SCH ×6 (03:20→23:54)
[2019-04-27 05:23] LABS: BASOPHILS % (AUTO) 0.5 % (0-1); EOSINOPHILS # (AUTO) 0.2 X10'3 (0-0.9); EOSINOPHILS % (AUTO) 2.2 % (0-6); HEMATOCRIT 27.4 % (35.0-45.0); HEMOGLOBIN 9.4 g/dl (12.0-16.0); LYMPHOCYTES # (AUTO) 0.4 X10'3 (1.1-4.8); LYMPHOCYTES % (AUTO) 4.6 % (21-51); MEAN CORPUSCULAR HEMOGLOBIN 33.4 PG (27.0-31.0); MEAN CORPUSCULAR HGB CONC 34.4 g/dL (33.0-36.5); MEAN PLATELET VOLUME 7.7 FL (7.4-10.4); MONOCYTES # (AUTO) 0.5 X10'3 (0-0.9); MONOCYTES % (AUTO) 5.8 % (2-12); NEUTROPHILS # (AUTO) 7.3 X10'3 (1.8-7.7); NEUTROPHILS % (AUTO) 86.9 % (42-75); PLATELET COUNT 244 X10'3 (140-440); RED BLOOD COUNT 2.83 X10'6 (4.20-5.60); RED CELL DISTRIBUTION WIDTH 15.7 % (11.5-14.5); WHITE BLOOD COUNT 8.4 X10'3 (4.5-11.0)
[2019-04-27 05:27] LABS: ALBUMIN 1.7 G/DL (3.4-5.0); ANION GAP 4 (8-16); BLOOD UREA NITROGEN 10 MG/DL (7-18); BUN/CREATININE RATIO 21.3 (6.6-38.0); CALCIUM 7.8 MG/DL (8.5-10.1); CHLORIDE 114 MMOL/L (99-107); CREATININE 0.47 MG/DL (0.40-0.90); GLUCOSE 89 MG/DL (70-104); MAGNESIUM 1.7 MG/DL (1.5-2.4); POTASSIUM 4.1 MMOL/L (3.5-5.1); SODIUM 143 MMOL/L (135-145); TOTAL CARBON DIOXIDE 24.7 MMOL/L (24-32); eGFR > 90 ML/MIN
--- NOTE | 2019-04-27 06:20 | NUR ---
Patient in room [facility]. I have received report from BEST Elizabeth and had the opportunity to ask questions and assume patient care. Addendum: 04/27/19 at 1834 by Tammie Puente RN BEST Olson
--- NOTE | 2019-04-27 06:21 | NUR ---
Problems reprioritized. Patient report given, questions answered & plan of care reviewed with Rema RN.
[2019-04-27] MEDS: K and/or MAG REPLACEMENT MC SCH ×2 (06:58→20:00)
[2019-04-27] MEDS: LIDOcaine 4% (40 mg/ml) topical solution 50ml TP SCH ×2 (07:14→20:00)
[2019-04-27 07:18] VITALS: BP 107/58
[2019-04-27] MEDS: multivitamins, therapeutics tablet PO SCH (08:00)
[2019-04-27] MEDS: loratadine 10mg tablet PO SCH (08:00)
[2019-04-27] MEDS: potassium chloride 10mEq ER tablet PO SCH (08:00)
[2019-04-27] MEDS: calcium carbonate/vitamin D3 tablet PO SCH (08:00)
[2019-04-27] MEDS: vitamin D (cholecalciferol) 1,000 unit tablet PO SCH (08:00)
[2019-04-27] MEDS: levoFLOXACIN-Levaquin 250mg/D5 50 ML IV SCH (09:14)
[2019-04-27] MEDS: pantoprazole 40 MG vial IV SCH ×2 (09:14→20:51)
[2019-04-27] MEDS: docusate sod 100mg capsule PO SCH ×2 (09:15→20:51)
[2019-04-27] MEDS: carVEDilol 3.125mg tablet PO SCH ×2 (09:17→20:51)
[2019-04-27] MEDS: lactobacillus rhamnosus 10,000 MMU CELLS/CAPSULE PO SCH (09:17)
[2019-04-27] MEDS: folic acid 1mg tablet PO SCH (09:17)
[2019-04-27] MEDS: magnesium hydroxide 30ml (MOM) UD suspension PO SCH (09:18)
[2019-04-27] MEDS: tamoxifen 10mg tablet PO SCH (09:20)
[2019-04-27] MEDS: enoxaparin 30mg/0.3ml syringe SUBCUT SCH (09:20)
[2019-04-27 11:00] VITALS: BP 98/61
--- NOTE | 2019-04-27 16:42 | NUR ---
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 Currently on full liquid diet specified with skim milk only instead of whole milk. Day 3 on full liquid diet. Per MD note patient is nauseated (receiving zofran), having emesis, minimal flatus and no BM yet and possible ileus (receiving bowel care and relistor). Receiving treatment for UTI and hypertension. RD visited patient at bedside, reports at home she drinks strawberry ensure , notified MD. Can send strawberry shakes for meals, d/w dietary. Pt transferred to [facility] from [facility], reports 14-23 lb wt loss with decreased appetite per malnutrition risk screen with RN. Per RD note at last visit 04/07/19 "Pt with low BMI of 18.0 using pt stated wt of 43.18 kg. At last visit in November of last year pt weighed 45 kg and reported UBW of 47 kg. Pt denied wt loss during malnutrition risk screen with RN this visit." Patient's current stated wt is 43.18 kg which is consistent with wt hx. Recommend: 1. advance diet as medically indicated to low residue 2. Continue bowel care 3. ensure enlive strawberry with meals, notified 4. strawberry shakes with meals, d/w dietary 5. weight per rx Addendum: 04/27/19 at [address] Amended: Links added.
--- NOTE | 2019-04-27 18:33 | NUR ---
Problems reprioritized. Patient report given, questions answered & plan of care reviewed with BEST Olson.
--- NOTE | 2019-04-27 18:58 | NUR ---
Patient in room [facility]. I have received report from Tammie JEWELL and had the opportunity to ask questions and assume patient care.
[2019-04-27 20:00] VITALS: BP 130/72
[2019-04-27] MEDS: polyethylene glycol 3350 17gm powd pack PO SCH (20:51)
[2019-04-28] VITALS: BP 118/64
[2019-04-28] MEDS: ondansetron 4mg rapidly disintigrating tab PO SCH ×3 (02:00→14:00)
[2019-04-28] MEDS: ipratropium/albuterol 3ml nebule IH SCH ×4 (03:26→14:47)
[2019-04-28] MEDS: morphine 2 MG/ML inj. syringe IV PRN ×2 (05:24→13:04)
[2019-04-28 06:00] VITALS: BP 96/49
--- NOTE | 2019-04-28 06:27 | NUR ---
Problems reprioritized. Patient report given, questions answered & plan of care reviewed with Aida JEWELL.
--- NOTE | 2019-04-28 07:03 | NUR ---
Patient in room [facility]. I have received report from roberto JEWELL and had the opportunity to ask questions and assume patient care.
[2019-04-28] MEDS: multivitamins, therapeutics tablet PO SCH (08:00)
[2019-04-28] MEDS: K and/or MAG REPLACEMENT MC SCH (08:00)
[2019-04-28] MEDS: LIDOcaine 4% (40 mg/ml) topical solution 50ml TP SCH (08:00)
[2019-04-28] MEDS: pantoprazole 40 MG vial IV SCH (08:36)
[2019-04-28] MEDS: carVEDilol 3.125mg tablet PO SCH (08:37)
[2019-04-28] MEDS: magnesium hydroxide 30ml (MOM) UD suspension PO SCH (08:37)
[2019-04-28] MEDS: potassium chloride 10mEq ER tablet PO SCH (08:37)
[2019-04-28] MEDS: lactobacillus rhamnosus 10,000 MMU CELLS/CAPSULE PO SCH (08:37)
[2019-04-28] MEDS: docusate sod 100mg capsule PO SCH (08:37)
[2019-04-28] MEDS: enoxaparin 30mg/0.3ml syringe SUBCUT SCH (08:37)
[2019-04-28] MEDS: folic acid 1mg tablet PO SCH (08:37)
[2019-04-28] MEDS: methylnaltrexone br 12mg/0.6ml inj***SubQ only SQ SCH (08:38)
[2019-04-28] MEDS: levoFLOXACIN-Levaquin 250mg/D5 50 ML IV SCH (08:40)
--- NOTE | 2019-04-28 12:21 | NUR ---
All cares given to patient. Daughter edmond present.
[2019-04-28] MEDS: tamoxifen 10mg tablet PO SCH (13:04)
[2019-04-28] MEDS: normal saline 1000ml 1,000 ML IV SCH (13:38)
--- NOTE | 2019-04-28 15:21 | NUR ---
Follow up: patient continues on full liquid diet. Notified MD of recommendation of Ensure Enlive on all meals. Dietary sending strawberry shakes with all meals while pending verification of Ensure. patient consuming about 25% of full liquid diet. Had one BM 04/27 and 04/28. Per MD note will transfer back to [facility] after having a bowel movement. Will continue to follow. 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 Currently on full liquid diet specified with skim milk only instead of whole milk. Day 3 on full liquid diet. Per MD note patient is nauseated (receiving zofran), having emesis, minimal flatus and no BM yet and possible ileus (receiving bowel care and relistor). Receiving treatment for UTI and hypertension. RD visited patient at bedside, reports at home she drinks strawberry ensure , notified MD. Can send strawberry shakes for meals, d/w dietary. Pt transferred to [facility] from [facility], reports 14-23 lb wt loss with decreased appetite per malnutrition risk screen with RN. Per RD note at last visit 04/07/19 "Pt with low BMI of 18.0 using pt stated wt of 43.18 kg. At last visit in November of last year pt weighed 45 kg and reported UBW of 47 kg. Pt denied wt loss during malnutrition risk screen with RN this visit." Patient's current stated wt is 43.18 kg which is consistent with wt hx. Recommend: 1. advance diet as medically indicated to low residue 2. Continue bowel care 3. ensure enlive strawberry with meals, notified 4. strawberry shakes with meals, d/w dietary 5. weight per rx Addendum: 04/28/19 at [address] Amended: Links added.
--- NOTE | 2019-04-28 16:12 | NUR ---
No IV for Zofran administration
--- NOTE | 2019-04-28 18:49 | NUR ---
patient transferred to [facility] 1600hrs. Picture taken of left skin tear. report given to génesis JEWELL
== END 2019-04-28 16:45 | DRG 326 ==
LOC: ER 18:18 → ED HOLD 04-22 03:10 → SUR 3N 04-22 03:45
PROVIDERS: ADMIT Internal Medicine; ATTEND Family Medicine
PROC: 0DH60UZ Insertion of Feeding Device into Stomach, Open Approach (ICD-10-PCS; 2019-04-22)
PROC: 0BQT0ZZ Repair Diaphragm, Open Approach (ICD-10-PCS; principal; 2019-04-22 14:05)
DX: K44.0 Diaphragmatic hernia with obstruction, without gangrene (principal); E43 Unspecified severe protein-calorie malnutrition; N39.0 Urinary tract infection, site not specified; Z68.1 Body mass index [BMI] 19.9 or less, adult; K56.7 Ileus, unspecified; K31.1 Adult hypertrophic pyloric stenosis; K92.0 Hematemesis; D64.9 Anemia, unspecified; I10 Essential (primary) hypertension; J44.9 Chronic obstructive pulmonary disease, unspecified; N20.0 Calculus of kidney; Z66 Do not resuscitate; F41.9 Anxiety disorder, unspecified; Z96.643 Presence of artificial hip joint, bilateral; B96.5 Pseudomonas (aeruginosa) (mallei) (pseudomallei) as the cause of diseases classified elsewhere; B95.2 Enterococcus as the cause of diseases classified elsewhere; R00.0 Tachycardia, unspecified; M19.90 Unspecified osteoarthritis, unspecified site; B95.5 Unspecified streptococcus as the cause of diseases classified elsewhere; Z85.118 Personal history of other malignant neoplasm of bronchus and lung; I25.2 Old myocardial infarction; Z85.3 Personal history of malignant neoplasm of breast; Z82.49 Family history of ischemic heart disease and other diseases of the circulatory system; Z87.11 Personal history of peptic ulcer disease; Z90.12 Acquired absence of left breast and nipple; Z90.710 Acquired absence of both cervix and uterus; Z92.3 Personal history of irradiation; Z88.8 Allergy status to other drugs, medicaments and biological substances; Z88.1 Allergy status to other antibiotic agents; Z91.013 Allergy to seafood; Z79.82 Long term (current) use of aspirin; Z79.899 Other long term (current) drug therapy
CPT/HCPCS: 36415; 36600; 71045; 74018; 74176; 76937; 80048; 80053; 81001; 82272; 82803; 82948; 83605; 83690; 83735; 85018; 85025; 85027; 85610; 85730; 87077; 87081; 87088; 87186; 92508; 92616; 93005; 94640; 94668; 94760; 96365; 96375; 97112; 97116; 97161; 97530; 97535; 99285; A4618; A6266; A6449; A7000; B4087; C1758; C9113; G0378; J0131; J0694; J0696; J0780; J1100; J1200; J1650; J1956; J2001; J2175; J2212; J2250; J2270; J2405; J2704; J2765; J3010; J3490; J7030; J7120; J8610